=== PATIENT | male | born 1930 | race Caucasian/White ===

== ENCOUNTER → 2016-05-02 | Outpatient (CLI) | payer OTHER ==
[~2016-05-02] MED LIST: AMLO-110 PO; CHOL1000 PO; LPR25 PO; OMEP20CA9 PO; SOTA80TA PO; TRAM-10 PO; XRL10 PO
[2016-05-02 12:46] LABS: BASO % 0.2 %; BASO ABS # 0.01 K/uL (0-0.2); COMPLETE YES; EOS % 5.1 %; HEMATOCRIT 41.8 % (42-52); IG% 0.4 %; LYMPH % 27.7 %; LYMPH ABS # 1.47 K/uL (1.2-3.4); MEAN CELL VOLUME 91.1 fL (80-100); MEAN CORPUSCULAR HEMOGLOBIN 32.9 pg (25-34); MEAN CORPUSCULAR HGB CONC 36.1 g/dl (32-36); MEAN PLATELET VOLUME 10.4 fL (7.4-10.4); MONO % 9.8 %; NEUT % 56.8 %; PLATELET COUNT 151 K/uL (130-400); RED BLOOD COUNT 4.59 M/uL (4.7-6.1)
[2016-05-02 13:06] LABS: BLOOD UREA NITROGEN 22 mg/dl (7-18); BUN/CREATININE RATIO 13.1 (10-20); CALCIUM 8.8 mg/dl (8.5-10.1); CARBON DIOXIDE 28 mmol/L (21-32); CHLORIDE 109 mmol/L (98-107); GLUCOSE 82 mg/dl (70-99); MAGNESIUM 2.2 mg/dl (1.8-2.4); PHOSPHORUS 2.4 mg/dl (2.5-4.9); POTASSIUM 3.7 mmol/L (3.5-5.1); SODIUM 147 mmol/L (136-145)
== END | disposition home or self-care (01) ==
LOC: C.LABPVFM 08:10
PROVIDERS: ATTEND Internal Medicine Nephrology
DX: N18.3 Chronic kidney disease, stage 3 (moderate) (principal)

== ENCOUNTER → 2016-05-13 | Outpatient (CLI) | payer OTHER ==
[2016-05-13 17:56] LABS: URINE APPEARANCE CLEAR (CLEAR); URINE BILIRUBIN NEG (NEG); URINE COLOR YELLOW; URINE NITRITE NEG (NEG); URINE SPECIFIC GRAVITY 1.021 (1.000-1.030); UROBILINOGEN NEG (NEG); ZZUR CULT IF INDIC CLEAN CATCH NO
[2016-05-13 18:00] LABS: MANUAL MICROSCOPIC REQUIRED? NO; REVIEW REQ? NO
[2016-05-13 18:10] LABS: URINE PROTIEN/CREAT RATIO 0.4 (0-0.2); URINE TOTAL PROTEIN 63.6 mg/dl (0-11.9)
== END | disposition home or self-care (01) ==
LOC: C.LABPVFM 18:00
PROVIDERS: ATTEND Internal Medicine Nephrology
DX: N18.3 Chronic kidney disease, stage 3 (moderate) (principal)

== ENCOUNTER → 2016-09-07 | Outpatient (CLI) | payer OTHER ==
--- NOTE | 2016-09-07 08:19 | DIAGNOSTIC IMAGING REPORT ---
CHEST 2 VIEWS ROUTINE CLINICAL HISTORY: N18.3 Chronic renal insufficiency, stage III (moderate)R05 Cough COMPARISON STUDY: 04/22/2015 FINDINGS: The bones soft tissues and hemidiaphragms are normal. The cardiomediastinal silhouette is normal. The lungs are clear. The pulmonary vasculature is normal. IMPRESSION: Negative chest. Electronically signed by: Vernon Segura M.D. 09/07/2016 8:18 AM Dictated Date/Time: 09/07/2016 8:18 AM
[2016-09-07 09:38] LABS: CALCIUM 8.6 mg/dl (8.5-10.1)
[2016-09-07 09:43] LABS: BLOOD UREA NITROGEN 22 mg/dl (7-18); BUN/CREATININE RATIO 11.5 (10-20); CARBON DIOXIDE 26 mmol/L (21-32); CHLORIDE 108 mmol/L (98-107); GLUCOSE 94 mg/dl (70-99); MAGNESIUM 2.4 mg/dl (1.8-2.4); POTASSIUM 4.2 mmol/L (3.5-5.1); SODIUM 142 mmol/L (136-145)
[2016-09-07 09:44] LABS: PHOSPHORUS 2.8 mg/dl (2.5-4.9)
== END | disposition home or self-care (01) ==
LOC: C.RAD 07:42
PROVIDERS: ATTEND Family Medicine
DX: N18.3 Chronic kidney disease, stage 3 (moderate) (principal); R05 Cough

== ENCOUNTER 2016-09-30 11:37 | Inpatient (IN) | payer OTHER ==
[2016-09-30] VITALS (22 sets, daily range): BP systolic 129–166; BP diastolic 72–98; PULSE 46–52; TEMP 36.5–37.2; O2SAT 86–99; Ht 165.1 cm; Wt 84.6 kg
[~2016-09-30] VITALS: Ht 165.1 cm; Wt 84.6 kg
[~2016-09-30 11:37] MED LIST changes: -AMLO-110 PO; -CHOL1000 PO; -OMEP20CA9 PO; -SOTA80TA PO
--- NOTE | 2016-09-30 12:14 | EMERGENCY ROOM VISIT NOTE ---
History Report prepared by Jimbo: Tyson Howell Under the Supervision of: Dr. Ham Hebert M.D. First contact with patient: 11:52 Chief Complaint: IRREGULAR HEARTBEAT Stated Complaint: BRADYCARDIA History of Present Illness The patient is an 86 year old male who presents to the Emergency Room via ambulance with complaints of a constant slow heart rate noticed since this morning. The patient states that he was at his doctor's office this morning for a regular check up, and they noticed he had a slow heart rate. The patient states that he had some chest pain this morning, and he is a little short of breath, though he can climb stairs fine. He states that he has felt this way for the past couple of weeks. The patient has a history of A-fib. Source of History: patient Onset: this morning Position: other (global) Quality: other (slow heart rate) Timing: constant Associated Symptoms: + chest pain, + SOB Review of Systems All systems have been listed, reviewed, and are negative other than those previously mentioned. Please see Additional Medical History Sheet. Past Medical & Surgical Medical Problems: (1) A-fib (2) Bradycardia (3) Weakness Family History Patient reports no known family medical history. Social History Alcohol Use: none Marital Status: Occupation Status: retired Current/Historical Medications Scheduled Amlodipine (Norvasc), 5 MG PO DAILY Cholecalciferol (Vitamin D3), 1 TAB PO DAILY Omeprazole (Prilosec), 20 MG PO DAILY Sotalol Hcl (Sotalol Hcl), 0.5 TAB PO BID Allergies Coded Allergies: No Known Allergies (Unverified , NKA, 09/30/16) Physical Exam Vital Signs Date Time Temp Pulse Resp B/P (MAP) Pulse Ox O2 Delivery O2 Flow Rate FiO2 09/30/16 13:13 22 09/30/16 12:49 22 16 150/56 100 Nasal Cannula 4.0 09/30/16 12:16 29 17 134/58 98 Nasal Cannula 4.0 09/30/16 12:02 100 Nasal Cannula 4.0 09/30/16 11:45 26 09/30/16 11:45 36.6 26 16 164/62 100 Nasal Cannula 2.0 09/30/16 11:45 96 Nasal Cannula Physical Exam GENERAL: Patient awake, alert, and appropriate. Appears in no distress. SKIN: No erythema, pallor, cyanosis or rash HEENT: Normal head, pupils equal, reactive to light and accommodation. Ears normal. Oral cavity and posterior pharynx appear normal. Neck: Without adenopathy, no neck vein distention. LUNGS: Clear to auscultation. No wheezes, no rales, no rhonchi. HEART: Severe bradycardia. No murmurs. No gallops. No rubs ABDOMEN: No masses, no rebound, no hepatomegaly or splenomegaly. EXTREMITIES: No signs of trauma. No pedal or pretibial edema. No calf or thigh tenderness. NEUROLOGIC: Cranial nerves II-XII within normal limits. No gross motor sensory function deficits. Medical Decision & Procedures ER Provider Diagnostic Interpretation: X ray results are stated below per my interpretation and the radiologist's interpretation. CHEST ONE VIEW PORTABLE CLINICAL HISTORY: 86 years-old Male presenting with severe bradycardia. TECHNIQUE: Portable upright AP view of the chest was obtained. COMPARISON: 09/07/2016. FINDINGS: Defibrillator leads project over the left hemithorax. Atherosclerosis of the aortic arch. Mildly prominent cardiac silhouette as on prior exam. Minimal linear opacities noted the lung bases bilaterally. No large effusion or pneumothorax. IMPRESSION: 1. Minimal basilar atelectasis. Electronically signed by: Sae Sandoval M.D. 09/30/2016 12:53 PM Dictated Date/Time: 09/30/2016 12:52 PM Laboratory Results 09/30/16 11:50 Red Blood Count 4.66, Mean Corpuscular Volume 94.8, Mean Corpuscular Hemoglobin 32.0, Mean Corpuscular Hemoglobin Concent 33.7, Mean Platelet Volume 11.6, Neutrophils (%) (Auto) 63.0, Lymphocytes (%) (Auto) 21.7, Monocytes (%) (Auto) 11.7, Eosinophils (%) (Auto) 3.2, Basophils (%) (Auto) 0.2, Neutrophils # (Auto ) 4.11, Lymphocytes # (Auto) 1.41, Monocytes # (Auto) 0.76, Eosinophils # (Auto ) 0.21, Basophils # (Auto) 0.01 09/30/16 11:50 Test 09/30/16 11:50 White Blood Count 6.51 K/uL (4.8-10.8) Red Blood Count 4.66 M/uL (4.7-6.1) Hemoglobin 14.9 g/dL (14.0-18.0) Hematocrit 44.2 % (42-52) Mean Corpuscular Volume 94.8 fL (80-100) Mean Corpuscular Hemoglobin 32.0 pg (25-34) Mean Corpuscular Hemoglobin Concent 33.7 g/dl (32-36) Platelet Count 147 K/uL (130-400) Mean Platelet Volume 11.6 fL (7.4-10.4) Neutrophils (%) (Auto) 63.0 % Lymphocytes (%) (Auto) 21.7 % Monocytes (%) (Auto) 11.7 % Eosinophils (%) (Auto) 3.2 % Basophils (%) (Auto) 0.2 % Neutrophils # (Auto) 4.11 K/uL (1.4-6.5) Lymphocytes # (Auto) 1.41 K/uL (1.2-3.4) Monocytes # (Auto) 0.76 K/uL (0.11-0.59) Eosinophils # (Auto) 0.21 K/uL (0-0.5) Basophils # (Auto) 0.01 K/uL (0-0.2) RDW Standard Deviation 46.1 fL (36.4-46.3) RDW Coefficient of Variation 13.5 % (11.5-14.5) Immature Granulocyte % (Auto) 0.2 % Immature Granulocyte # (Auto) 0.01 K/uL (0.00-0.02) Prothrombin Time 11.4 SECONDS (9.0-12.0) Prothromb Time International Ratio 1.1 (0.9-1.1) Activated Partial Thromboplast Time 25.4 SECONDS (21.0-31.0) Partial Thromboplastin Ratio 1.0 Anion Gap 9.0 mmol/L (3-11) Est Creatinine Clear Calc Drug Dose 21.9 ml/min Estimated GFR () 25.8 Estimated GFR (Non- 22.3 BUN/Creatinine Ratio 18.8 (10-20) Calcium Level 9.0 mg/dl (8.5-10.1) Total Bilirubin 0.6 mg/dl (0.2-1) Aspartate Amino Transf (AST/SGOT) 29 U/L (15-37) Alanine Aminotransferase (ALT/SGPT) 47 U/L (12-78) Alkaline Phosphatase 74 U/L (45-117) Total Creatine Kinase 39 U/L (39-308) Creatine Kinase MB 1.5 ng/ml (0.5-3.6) Creatine Kinase MB Ratio 3.8 (0-3.0) Troponin I 0.071 ng/ml (0-0.045) Total Protein 6.7 gm/dl (6.4-8.2) Albumin 3.3 gm/dl (3.4-5.0) Globulin 3.4 gm/dl (2.5-4.0) Albumin/Globulin Ratio 1.0 (0.9-2) Lyme Disease IgG Antibody NEG (NEG) Lyme Disease IgM Antibody NEG (NEG) Laboratory results as stated above per my review. Procedure An external pacemaker was placed on the patient and readied if the patient became symptomatic. ECG Indication: bradycardia Rate (beats per minute): 26 Rhythm: sinus bradycardia Findings: left axis deviation, other (Third degree AV block) ED Course 1152: Past medical records reviewed. The patient was evaluated in room B1. A complete history and physical examination was performed. 1218: I reevaluated the patient, and he resting. 1221: I discussed the patient's case with Dr. Encinas, Cardiology, and he recommends a temporary pacer. 1240: I reassessed the patient, and he is doing fine 1249: I reevaluated the patient, and his troponin was elevated. 1307: I reassessed the patient, and Dr. Zelaya, Cardiology was evaluating the patient for a temporary pace maker. Medical Decision Nurses notes reviewed. Medical history sheet reviewed. Differential diagnosis includes but is not limited to: third degree av block, acute myocardial infarction, bradycardia secondary to medications, electrolyte abnormality, and lyme's disease. Medication Reconciliation: I attest that I have personally reviewed the patient' s current medication list. Blood Pressure Screening: Patient was found to have an elevated blood pressure and was referred to their primary doctor for recheck and further treatment. The patient has been feeling weak for the past 2-3 weeks. He went to a routine doctor's visit today and was found to be in third-degree block. I discussed care with the paramedics prior to his arrival. We did not initiate any intervention because the patient was stable. I examined the patient immediately on arrival. The patient remains in very slow rhythm. Multiple labs , EKG and imaging were obtained. The patient's troponin was mildly elevated. I discussed care with 2 cardiologists. The patient will require at least a temporary pacemaker. The patient was taken to the cardiopulmonary labor expediter from the ED. Consults Time Called: 1218 Consulting Physician: Dr. Pineda, Cardiology Returned Call: 1221 I discussed the patient's case with Dr. Encinas, Cardiology, and he recommends a temporary pacer. Impression Primary Impression: Complete heart block Additional Impression: Elevated troponin Critical Care I have personally spent greater than 35 minutes of critical care time in the direct management of this patient. This includes bedside care, interpretation of diagnostic studies, and testing, discussion with consultants, patient, and family members, and other required patient management activities. This 35 minutes is in excess of all separately billable procedures. Scribe Attestation The scribe's documentation has been prepared under my direction and personally reviewed by me in its entirety. I confirm that the note above accurately reflects all work, treatment, procedures, and medical decision making performed by me. Departure Information Dispostion Being Evaluated By Hospitalist Referrals Jesus Newton M.D. (PCP) Patient Instructions My [facility] Problem Qualifiers
[2016-09-30 12:18] LABS: BASO % 0.2 %; BASO ABS # 0.01 K/uL (0-0.2); COMPLETE YES; EOS % 3.2 %; HEMATOCRIT 44.2 % (42-52); IG% 0.2 %; LYMPH % 21.7 %; LYMPH ABS # 1.41 K/uL (1.2-3.4); MEAN CELL VOLUME 94.8 fL (80-100); MEAN CORPUSCULAR HGB CONC 33.7 g/dl (32-36); MEAN PLATELET VOLUME 11.6 fL (7.4-10.4); MONO % 11.7 %; PLATELET COUNT 147 K/uL (130-400); RED BLOOD COUNT 4.66 M/uL (4.7-6.1); WHITE BLOOD COUNT 6.51 K/uL (4.8-10.8)
[2016-09-30] MEDS ORDERED: AMLO-110 PO (12:25)
[2016-09-30] MEDS ORDERED: OMEP20CA9 PO (12:25)
[2016-09-30] MEDS ORDERED: CHOL1000 PO (12:25)
[2016-09-30] MEDS ORDERED: SOTA80TA PO (12:25)
[2016-09-30 12:33] LABS: INR 1.1 (0.9-1.1); PROTHROMBIN TIME (PATIENT) 11.4 SECONDS (9.0-12.0)
[2016-09-30 12:41] LABS: BUN/CREATININE RATIO 18.8 (10-20); CREATININE 2.5 mg/dl (0.60-1.40); POTASSIUM 4.8 mmol/L (3.5-5.1)
[2016-09-30 12:48] LABS: CKMB/CK RATIO 3.8 (0-3.0)
--- NOTE | 2016-09-30 12:55 | DIAGNOSTIC IMAGING REPORT ---
CHEST ONE VIEW PORTABLE CLINICAL HISTORY: 86 years-old Male presenting with severe bradycardia. TECHNIQUE: Portable upright AP view of the chest was obtained. COMPARISON: 09/07/2016. FINDINGS: Defibrillator leads project over the left hemithorax. Atherosclerosis of the aortic arch. Mildly prominent cardiac silhouette as on prior exam. Minimal linear opacities noted the lung bases bilaterally. No large effusion or pneumothorax. IMPRESSION: 1. Minimal basilar atelectasis. Electronically signed by: Sae Sandoval M.D. 09/30/2016 12:53 PM Dictated Date/Time: 09/30/2016 12:52 PM
[2016-09-30] MEDS ORDERED: ALUMINUM/MAGNESIUM/SIMETH (MAALOX MAX) 30 ML UDC PO PRN (13:30)
[2016-09-30] MEDS ORDERED: MAGNESIUM HYDROXIDE SUSP 30 ML UDC PO PRN (13:30)
[2016-09-30] MEDS ORDERED: NITROGLYCERIN 0.4 MG SL PER TAB CHARGE SL PRN (13:30)
[2016-09-30] MEDS ORDERED: ONDANSETRON INJ 2 MG/ML 2 ML VIAL IV PRN (13:30)
[2016-09-30] MEDS ORDERED: ACETAMINOPHEN 325 MG TAB PO PRN (13:30)
[2016-09-30 13:35] LABS: LYME DISEASE AB IGG NEG (NEG); LYME DISEASE AB IGM NEG (NEG)
[2016-09-30] MEDS ORDERED: MIDAZOLAM HCL 1 MG/ML 2ML VIAL ONE (13:36)
[2016-09-30] MEDS ORDERED: FENTANYL CITRATE INJ 50 MCG/1 ML 2 ML VIAL ONE (13:36)
--- NOTE | 2016-09-30 13:57 | History and Physical ---
History & Physical Date & Time of Service: Sep 30, 2016 at 13:41 Chief Complaint: Bradycardia Primary Care Physician: Jesus Newton M.D. History of Present Illness Source: patient 86 y/o M Hx HTN, CKD 3, mild dementia. Pt states he has felt fatigued for approximately 2 weeks. He denied a fever, CP, SOB, N/V or dysuria. He presented to his primary MDs office for a checkup and it was noted that his HR was in the mid 20s. Needless to say he was referred to the hospital for evaluation. On arrival to the ER an EKG revealed AV dissociation with a ventricular rhythm at 26 BPM. Other than fatigue he continued to have no additional complaints. Initial labs were notable for acute on chronic RF in addition to a troponin above reference range. The pt takes Sotalol daily. Past Medical/Surgical History 1) HTN 2) CKD 3 - baseline creat 1.9 per recent records Family History Patient reports no known family medical history. Does not know cause of parents demise Social History Quit smoking 25 years prior - does not drink - maintains a degree of independence Smoking Status: Former Smoker Marital Status: Occupational Status: retired Immunizations History of Influenza Vaccine: N/A History of Tetanus Vaccine?: Unknown History of Pneumococcal: Unknown History of Hepatitis B Vaccine: Unknown Multi-Drug Resistant Organisms History of MDRO: No Allergies Coded Allergies: No Known Allergies (Unverified , NKA, 09/30/16) Home Medications Scheduled Amlodipine (Norvasc), 5 MG PO DAILY Cholecalciferol (Vitamin D3), 1 TAB PO DAILY Omeprazole (Prilosec), 20 MG PO DAILY Sotalol Hcl (Sotalol Hcl), 0.5 TAB PO BID Review of Systems Constitutional: + weakness, + fatigue, No fever, No chills, No sweats Eyes: No worsening of vision, No eye pain ENT: No hearing loss, No nasal symptoms Respiratory: No cough, No sputum, No wheezing Cardiovascular: No chest pain, No orthopnea, No PND Abdomen: No pain, No nausea, No vomiting Musculoskeletal: No joint pain, No muscle pain Genitourinary - Male: No hematuria, No dysuria, No urinary frequency Neurologic: + weakness, No memory loss, No paralysis Psychiatric: No depression symptoms Endocrine: + fatigue Hematologic / Lymphatic: No abnormal bleeding/bruising Integumentary: No rash Allergic / Immunologic: No environmental allergies Physical Exam Vital Signs Date Time Temp Pulse Resp B/P (MAP) Pulse Ox O2 Delivery O2 Flow Rate FiO2 09/30/16 13:13 22 09/30/16 12:49 22 16 150/56 100 Nasal Cannula 4.0 09/30/16 12:16 29 17 134/58 98 Nasal Cannula 4.0 09/30/16 12:02 100 Nasal Cannula 4.0 09/30/16 11:45 26 09/30/16 11:45 36.6 26 16 164/62 100 Nasal Cannula 2.0 09/30/16 11:45 96 Nasal Cannula General Appearance: WD/WN, no apparent distress, + pertinent finding (Pleasant eldelry male - no distress or discomfort in reclining position) Head: normocephalic Eyes: normal inspection ENT: normal ENT inspection, pharynx normal Neck: supple, no JVD Respiratory/Chest: chest non-tender, lungs clear, normal breath sounds Cardiovascular: + bradycardia, + pertinent finding (Faint heart sounds - may have mild systolic murmur) Abdomen/GI: normal bowel sounds, non tender, soft Back: normal inspection, no CVA tenderness, no muscle spasm, normal range of motion Extremities/Musculoskelatal: normal inspection, no calf tenderness, normal capillary refill, no pedal edema, normal range of motion Neurologic/Psych: facilities management executive II-XII nml as tested, no motor/sensory deficits, alert, + pertinent finding (AAO x 2 ) Skin: normal color, warm/dry, no rash Diagnostics Laboratory Results Results Past 24 Hours Test 09/30/16 11:50 Range/Units White Blood Count 6.51 4.8-10.8 K/uL Red Blood Count 4.66 4.7-6.1 M/uL Hemoglobin 14.9 14.0-18.0 g/dL Hematocrit 44.2 42-52 % Mean Corpuscular Volume 94.8 80-100 fL Mean Corpuscular Hemoglobin 32.0 25-34 pg Mean Corpuscular Hemoglobin Concent 33.7 32-36 g/dl Platelet Count 147 130-400 K/uL Mean Platelet Volume 11.6 7.4-10.4 fL Neutrophils (%) (Auto) 63.0 % Lymphocytes (%) (Auto) 21.7 % Monocytes (%) (Auto) 11.7 % Eosinophils (%) (Auto) 3.2 % Basophils (%) (Auto) 0.2 % Neutrophils # (Auto) 4.11 1.4-6.5 K/uL Lymphocytes # (Auto) 1.41 1.2-3.4 K/uL Monocytes # (Auto) 0.76 0.11-0.59 K/uL Eosinophils # (Auto) 0.21 0-0.5 K/uL Basophils # (Auto) 0.01 0-0.2 K/uL RDW Standard Deviation 46.1 36.4-46.3 fL RDW Coefficient of Variation 13.5 11.5-14.5 % Immature Granulocyte % (Auto) 0.2 % Immature Granulocyte # (Auto) 0.01 0.00-0.02 K/uL Prothrombin Time 11.4 9.0-12.0 SECONDS Prothromb Time International Ratio 1.1 0.9-1.1 Activated Partial Thromboplast Time 25.4 21.0-31.0 SECONDS Partial Thromboplastin Ratio 1.0 Sodium Level 145 136-145 mmol/L Potassium Level 4.8 3.5-5.1 mmol/L Chloride Level 114 98-107 mmol/L Carbon Dioxide Level 22 21-32 mmol/L Anion Gap 9.0 3-11 mmol/L Blood Urea Nitrogen 47 7-18 mg/dl Creatinine 2.50 0.60-1.40 mg/dl Est Creatinine Clear Calc Drug Dose 21.9 ml/min Estimated GFR () 25.8 Estimated GFR (Non- 22.3 BUN/Creatinine Ratio 18.8 10-20 Random Glucose 115 70-99 mg/dl Calcium Level 9.0 8.5-10.1 mg/dl Total Bilirubin 0.6 0.2-1 mg/dl Aspartate Amino Transf (AST/SGOT) 29 15-37 U/L Alanine Aminotransferase (ALT/SGPT) 47 12-78 U/L Alkaline Phosphatase 74 45-117 U/L Total Creatine Kinase 39 39-308 U/L Creatine Kinase MB 1.5 0.5-3.6 ng/ml Creatine Kinase MB Ratio 3.8 0-3.0 Troponin I 0.071 0-0.045 ng/ml Total Protein 6.7 6.4-8.2 gm/dl Albumin 3.3 3.4-5.0 gm/dl Globulin 3.4 2.5-4.0 gm/dl Albumin/Globulin Ratio 1.0 0.9-2 Lyme Disease IgG Antibody NEG NEG Lyme Disease IgM Antibody NEG NEG Diagnostic Radiology CXR: Minimal basilar atelectasis. EKG AV dissociation - ventricular rate of 26 BPM - L axis Impression Assessment and Plan 86 y/o M Hx HTN, CKD 3, PAF, mild dementia. Pt states he has felt fatigued for approximately 2 weeks. He denied a fever, CP, SOB, N/V or dysuria. He presented to his primary MDs office for a checkup and it was noted that his HR was in the mid 20s. Needless to say he was referred to the hospital for evaluation. On arrival to the ER an EKG revealed AV dissociation with a ventricular rhythm at 26 BPM. Other than fatigue he continued to have no additional complaints. Initial labs were notable for acute on chronic RF in addition to a troponin above reference range. The pt takes Sotalol daily for PAF. 1) Bradycardia - heart block - Pt was evaluated by cardiology in the ER. He will receive a temporary pacer and proceed to the ICU. He will be observed over the weekend to determine if this is a Sotalol effect or he needs a permanent pacer. Lyme titers have been sent. He may require a permanent pacer regardless as he would not be able to receive rate control drugs in the event that his AF recurred. 2) HTN - we have held Norvasc presently 3) CKD - creat is above recent baseline likely due to hypoperfusion from bradycardia. Will provide gentle IVF and recheck AM 4) Elevated trop - in presence of elevated creat and bradycardia - unlikely related to CAD - will trend - may receive full-dose anticoagulation with temp pacer regadless, ASA held pending procedure. Full code - Heparin prophylaxis Total time for this admission including review of labs, meds, EKG, imaging - discussion with cardiology, ER attending, Pts primary [employer] Buyer - critical care time - 45 min Level of Care Critical Care Resuscitation Status FULL RESUSCITATION VTE Prophylaxis VTE Risk Assessment Done? Y/N: Yes Risk Level: Moderate Given or contraindicated: Unfractionated heparin SQ
--- NOTE | 2016-09-30 14:32 | [facility] Operative Report ---
Operative Report Operative Date Sep 30, 2016. Pre-Operative Diagnosis symptomatic bradycardia high-degree AV block Post-Operative Diagnosis same Procedure(s) Performed Ultrasound guided Vascular Access Transvenous pacemaker placement Surgeon Garcia Roofing Machine Tender Surgeon(s) Ulises Estimated Blood Loss 2 ml Findings Dilated Right IJ Symptomatic bradycardia Fluids None Specimens None Drains None Anesthesia Local, 1% lidocaine Complication(s) None Disposition Surgical ICU Description of Procedure Right IJ visualized under ultrasound Local anesthesia with 1% lidocaine 6Fr sheath placed to Right IJ Temporary transvenous pacing wire guided to RV under fluoroscopy. Appropriate position confirmed with pacing down to 0.5 mA. Pacing settings at completion of procedure: VVI @ 50 bpm, 10 mA Sheath and wire sutured into place. Summary: Successful temporary transvenous pacemaker placement. I attest to the content of the Intraoperative Record and any orders documented therein. Any exceptions are noted below.
--- NOTE | 2016-09-30 15:52 | Critical Care Consultation ---
Critical Care Consultation Date of Consultation: Sep 30, 2016. Attending Physician: Srinivas Collins M.D. Reason for Consultation: Bradycardia and weakness History of Present Illness He presented to the hospital after discovery of substantial bradycardia. This was thought secondary to medications and conduction disease. A temporary pacer was placed and he was moved to the ICU for monitoring and care. He is in good spirits. No dyspnea. No target pain. Current medications tolerated. We reviewed his medications and history together with his family who are present in the room today. Past Medical/Surgical History HTN Renal Insufficiency--history of nephrectomy 18months ago--for lesion of questionable malignancy--family report negative malignancy at path. Family History Patient reports no known family medical history. Social History Smoking Status: Former Smoker Marital Status: Occupation Status: retired Allergies Coded Allergies: No Known Allergies (Unverified , NKA, 09/30/16) Home Medications Scheduled Amlodipine (Norvasc), 5 MG PO DAILY Cholecalciferol (Vitamin D3), 1 TAB PO DAILY Omeprazole (Prilosec), 20 MG PO DAILY Sotalol Hcl (Sotalol Hcl), 0.5 TAB PO BID Current Inpatient Medications Current Inpatient Medications Medications (Trade) Dose Ordered Sig/Semaj Route Start Time Stop Time Status Last Admin Dose Admin Heparin Sodium (Porcine) (Heparin Sq 5000 Unit/0.5ml) 5,000 unit Q8H SQ 09/30/16 22:00 10/30/16 21:59 Acetaminophen (Tylenol Tab) 650 mg Q4H PRN PO 09/30/16 13:30 10/30/16 13:29 Lorazepam (Ativan Tab) 0.5 mg Q4H PRN PO 09/30/16 13:30 10/30/16 13:29 Nitroglycerin (Nitrostat Tab) 0.4 mg UD PRN SL 09/30/16 13:30 10/30/16 13:29 Al Hydrox/Mg Hydrox/Simethicone (Maalox Max Susp) 15 ml Q4H PRN PO 09/30/16 13:30 10/30/16 13:29 Magnesium Hydroxide (Milk Of Magnesia Susp) 30 ml Q12H PRN PO 09/30/16 13:30 10/30/16 13:29 Ondansetron HCl (Zofran Inj) 4 mg Q6H PRN IV 09/30/16 13:30 10/30/16 13:29 Morphine Sulfate (MoRPHine SULFATE INJ) 2 mg Q2H PRN IV 09/30/16 13:30 10/14/16 13:29 Pantoprazole Sodium (Protonix Tab) 40 mg QAM PO 10/01/16 09:00 10/31/16 08:59 Heparin Sodium (Porcine) (Heparin Sq 5000 Unit/0.5ml) 5,000 unit NOW ONCE SQ 09/30/16 16:00 09/30/16 16:01 Review of Systems No chest pain. No dyspnea. No new neuro changes. No GI/ complaints. He is comfortable. Remaining review is negative. Physical Exam Date Time Temp Pulse Resp B/P (MAP) Pulse Ox O2 Delivery O2 Flow Rate FiO2 09/30/16 15:00 37.2 52 20 132/75 97 Room Air 09/30/16 14:18 50 16 125/80 (95) 95 Room Air 09/30/16 13:49 23 16 146/58 100 09/30/16 13:39 22 16 152/58 100 Nasal Cannula 4.0 09/30/16 13:13 22 09/30/16 12:49 22 16 150/56 100 Nasal Cannula 4.0 09/30/16 12:16 29 17 134/58 98 Nasal Cannula 4.0 09/30/16 12:02 100 Nasal Cannula 4.0 09/30/16 11:45 26 09/30/16 11:45 36.6 26 16 164/62 100 Nasal Cannula 2.0 09/30/16 11:45 96 Nasal Cannula Gen--no distress HEENT--no focal changes Pulmonary--exchange is fine Cardio--rate is 50 and paced. No JVD. Perfusion is acceptable GI--functional --negative Neuro--no new focal changes. Musculo--OA changes Derm--neg Psych--calm and appropriate with me today. Laboratory Results Last 24 Hours Test 09/30/16 11:50 White Blood Count 6.51 K/uL Red Blood Count 4.66 M/uL Hemoglobin 14.9 g/dL Hematocrit 44.2 % Mean Corpuscular Volume 94.8 fL Mean Corpuscular Hemoglobin 32.0 pg Mean Corpuscular Hemoglobin Concent 33.7 g/dl Platelet Count 147 K/uL Mean Platelet Volume 11.6 fL Neutrophils (%) (Auto) 63.0 % Lymphocytes (%) (Auto) 21.7 % Monocytes (%) (Auto) 11.7 % Eosinophils (%) (Auto) 3.2 % Basophils (%) (Auto) 0.2 % Neutrophils # (Auto) 4.11 K/uL Lymphocytes # (Auto) 1.41 K/uL Monocytes # (Auto) 0.76 K/uL Eosinophils # (Auto) 0.21 K/uL Basophils # (Auto) 0.01 K/uL RDW Standard Deviation 46.1 fL RDW Coefficient of Variation 13.5 % Immature Granulocyte % (Auto) 0.2 % Immature Granulocyte # (Auto) 0.01 K/uL Prothrombin Time 11.4 SECONDS Prothromb Time International Ratio 1.1 Activated Partial Thromboplast Time 25.4 SECONDS Partial Thromboplastin Ratio 1.0 Sodium Level 145 mmol/L Potassium Level 4.8 mmol/L Chloride Level 114 mmol/L Carbon Dioxide Level 22 mmol/L Anion Gap 9.0 mmol/L Blood Urea Nitrogen 47 mg/dl Creatinine 2.50 mg/dl Est Creatinine Clear Calc Drug Dose 21.9 ml/min Estimated GFR () 25.8 Estimated GFR (Non- 22.3 BUN/Creatinine Ratio 18.8 Random Glucose 115 mg/dl Calcium Level 9.0 mg/dl Total Bilirubin 0.6 mg/dl Aspartate Amino Transf (AST/SGOT) 29 U/L Alanine Aminotransferase (ALT/SGPT) 47 U/L Alkaline Phosphatase 74 U/L Total Creatine Kinase 39 U/L Creatine Kinase MB 1.5 ng/ml Creatine Kinase MB Ratio 3.8 Troponin I 0.071 ng/ml Total Protein 6.7 gm/dl Albumin 3.3 gm/dl Globulin 3.4 gm/dl Albumin/Globulin Ratio 1.0 Lyme Disease IgG Antibody NEG Lyme Disease IgM Antibody NEG Assessment & Plan Bradycardia possible secondary to Sotalol combined with progressive reduction in GFR. 1. Cardio--pacer and monitor--may require permanent--should shack out soon 2. Pulmonary--toilette and track 3.GI--functional -- OBR as required. 4. Neuro--reported mild dementia--will track for behaviors
[2016-09-30] MEDS ORDERED: HEPARIN SOD 5000 UNIT/0.5 ML CARP SQ ONE (16:00)
--- NOTE | 2016-09-30 17:05 | Cardiology Consultation ---
Cardiology Consultation Date of Consultation: Sep 30, 2016. Requesting Physician: Dr. Hebert Reason for Consultation: Advanced heart block, bradycardia Pt evaluation today including: conversation w/ patient, conversation w/ family , physical exam, chart review, lab review, review of studies, conversation w/ senior staff consultant, review of inpatient medication list, conversation w/ attending History of Present Illness Mr. Flores is a very pleasant 86-year-old man with a history of paroxysmal atrial fibrillation on sotalol, hypertension, chronic kidney disease status post right nephrectomy in the setting of right renal mass (oncocytoma), osteoarthritis who was admitted with fatigue, dizziness and bradycardia. Patient has been followed by Dr. Pruitt for his cardiovascular care. Has been maintained on sotalol for years. Previously was on anticoagulation with Coumadin which was discontinued in the setting of repeated falls. More recently patient states he has been in his usual state of health up until approximately the last several days. Over that time he has noticed increased generalized fatigue, as well as dyspnea on exertion and dizziness with going from sitting to standing. Denies any associated chest pain. Denies any palpitations. Denies any lower extremity swelling, orthopnea or PND. Has not had similar symptoms in the past. No change to his recent medications. 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 In the ED patient was hemodynamically stable and largely asymptomatic while lying flat with again heart rates noted down into the 20s. Telemetry, EKGs showed high- degree AV block, primarily 2:1 AVB with some periods of AV dissociation. Initial troponin positive at 0.07. Past Medical/Surgical History Paroxysmal atrial fibrillation, hypertension, chronic kidney disease, prior right renal mass status post nephrectomy, osteoarthritis Family History Patient reports no known family medical history. Denies family history of premature coronary artery disease or sudden cardiac Social History Smoking Status: Former Smoker History of Alcohol Use: No Lives by himself. Retired Review of Systems 10 point review of systems was completed and was otherwise negative unless stated in HPI Allergies Coded Allergies: No Known Allergies (Unverified , NKA, 09/30/16) Medications Current Inpatient Medications Medications (Trade) Dose Ordered Sig/Semaj Route Start Time Stop Time Status Last Admin Dose Admin Heparin Sodium (Porcine) (Heparin Sq 5000 Unit/0.5ml) 5,000 unit Q8H SQ 09/30/16 13:30 10/30/16 13:29 UNV Acetaminophen (Tylenol Tab) 650 mg Q4H PRN PO 09/30/16 13:30 10/30/16 13:29 UNV Lorazepam (Ativan Tab) 0.5 mg Q4H PRN PO 09/30/16 13:30 10/30/16 13:29 UNV Nitroglycerin (Nitrostat Tab) 0.4 mg UD PRN SL 09/30/16 13:30 10/30/16 13:29 UNV Al Hydrox/Mg Hydrox/Simethicone (Maalox Max Susp) 15 ml Q4H PRN PO 09/30/16 13:30 10/30/16 13:29 UNV Magnesium Hydroxide (Milk Of Magnesia Susp) 30 ml Q12H PRN PO 09/30/16 13:30 10/30/16 13:29 UNV Ondansetron HCl (Zofran Inj) 4 mg Q6H PRN IV 09/30/16 13:30 10/30/16 13:29 UNV Morphine Sulfate (MoRPHine SULFATE INJ) 2 mg Q2H PRN IV 09/30/16 13:30 10/14/16 13:29 UNV Non-Formulary Medication (Omeprazole (Prilosec)) 20 mg DAILY PO 10/01/16 09:00 10/31/16 08:59 UNV Physical Exam Vital Signs Past 12 Hours Date Time Temp Pulse Resp B/P (MAP) Pulse Ox O2 Delivery O2 Flow Rate FiO2 09/30/16 13:39 22 16 152/58 100 Nasal Cannula 4.0 09/30/16 13:13 22 09/30/16 12:49 22 16 150/56 100 Nasal Cannula 4.0 09/30/16 12:16 29 17 134/58 98 Nasal Cannula 4.0 09/30/16 12:02 100 Nasal Cannula 4.0 09/30/16 11:45 26 09/30/16 11:45 36.6 26 16 164/62 100 Nasal Cannula 2.0 09/30/16 11:45 96 Nasal Cannula Head: normocephalic ENMT: normal ENT inspection Neck: supple Lungs: Auscultation: breath sounds normal, no wheezing, no rales/crackles Cardiovascular: Heart Auscultation: bradycardia (Heart rate 20s), II/ WSM (At left lower base) Peripheral Pulses: Carotid Pulse: normal on the left, normal on the right Radial Pulse: normal on the left, normal on the right Femoral Pulse: normal on the left, normal on the right Dorsalis Pedis Pulse: normal on the left, normal on the right Abdomen: Inspection & Palpation: soft, non-distended Extremities: no cyanosis, no edema Neurologic: Cranial Nerves: grossly intact Sensation: grossly intact Data Laboratory Results: Last 24 Hours Test 09/30/16 11:50 White Blood Count 6.51 K/uL Red Blood Count 4.66 M/uL Hemoglobin 14.9 g/dL Hematocrit 44.2 % Mean Corpuscular Volume 94.8 fL Mean Corpuscular Hemoglobin 32.0 pg Mean Corpuscular Hemoglobin Concent 33.7 g/dl Platelet Count 147 K/uL Mean Platelet Volume 11.6 fL Neutrophils (%) (Auto) 63.0 % Lymphocytes (%) (Auto) 21.7 % Monocytes (%) (Auto) 11.7 % Eosinophils (%) (Auto) 3.2 % Basophils (%) (Auto) 0.2 % Neutrophils # (Auto) 4.11 K/uL Lymphocytes # (Auto) 1.41 K/uL Monocytes # (Auto) 0.76 K/uL Eosinophils # (Auto) 0.21 K/uL Basophils # (Auto) 0.01 K/uL RDW Standard Deviation 46.1 fL RDW Coefficient of Variation 13.5 % Immature Granulocyte % (Auto) 0.2 % Immature Granulocyte # (Auto) 0.01 K/uL Prothrombin Time 11.4 SECONDS Prothromb Time International Ratio 1.1 Activated Partial Thromboplast Time 25.4 SECONDS Partial Thromboplastin Ratio 1.0 Sodium Level 145 mmol/L Potassium Level 4.8 mmol/L Chloride Level 114 mmol/L Carbon Dioxide Level 22 mmol/L Anion Gap 9.0 mmol/L Blood Urea Nitrogen 47 mg/dl Creatinine 2.50 mg/dl Est Creatinine Clear Calc Drug Dose 21.9 ml/min Estimated GFR () 25.8 Estimated GFR (Non- 22.3 BUN/Creatinine Ratio 18.8 Random Glucose 115 mg/dl Calcium Level 9.0 mg/dl Total Bilirubin 0.6 mg/dl Aspartate Amino Transf (AST/SGOT) 29 U/L Alanine Aminotransferase (ALT/SGPT) 47 U/L Alkaline Phosphatase 74 U/L Total Creatine Kinase 39 U/L Creatine Kinase MB 1.5 ng/ml Creatine Kinase MB Ratio 3.8 Troponin I 0.071 ng/ml Total Protein 6.7 gm/dl Albumin 3.3 gm/dl Globulin 3.4 gm/dl Albumin/Globulin Ratio 1.0 Lyme Disease IgG Antibody NEG Lyme Disease IgM Antibody NEG Chest x-ray minimal basilar atelectasis Assessment & Plan 1. Symptomatic bradycardia, high-degree AV block 2. History of paroxysmal atrial fibrillation on sotalol 3. Mildly elevated troponin 4. Acute on chronic renal insufficiency 5. Hypertension Patient seen and evaluated in the emergency department. He denied symptoms while lying flat but was symptomatic with minimal exertion. Although hemodynamically stable, in the setting profound bradycardia decision was made to proceed with transvenous temporary pacemaker placement. Patient endorsed symptomatic improvement post appropriate pacing. Current bradycardia potentially related to his longstanding sotalol and will plan to hold over med over the weekend to see if he has any recovery in conduction system. No other clear acute causes of conduction system disease, Lyme serology is negative and low suspicion bradycardia related to ACS. Recommendations-- --admit to ICU --hold home sotalol --check echocardiogram --trend troponins until peaks -- have discussed patient with EP and if significant bradycardia persists over weekend tentatively plan for permanent device placement on Monday --will continue to follow. Please contact with any questions.
[2016-09-30] MEDS ORDERED: PNEUMOCOCCAL POLYSACCHARIDES 25 MCG/0.5 ML VIAL/SYR IM. ONE (19:00)
[2016-09-30] MEDS ORDERED: PNEUMOCOCCAL ADMINISTRATION CHARGE ONE (19:00)
[2016-09-30] MEDS: HEPARIN SOD 5000 UNIT/0.5 ML CARP SQ SCH (21:20)
[2016-09-30 23:28] LABS: URINE APPEARANCE CLEAR (CLEAR); URINE BILIRUBIN NEG (NEG); URINE COLOR YELLOW; URINE NITRITE NEG (NEG); URINE SPECIFIC GRAVITY 1.012 (1.000-1.030); UROBILINOGEN NEG (NEG); ZZUR CULT IF INDIC CLEAN CATCH NO
[2016-09-30 23:29] LABS: MANUAL MICROSCOPIC REQUIRED? NO; REVIEW REQ? NO
[2016-10-01] VITALS (36 sets, daily range): BP systolic 119–194; BP diastolic 68–91; PULSE 50–53; TEMP 36.5–36.7; O2SAT 93–97
[2016-10-01 05:35] LABS: BASO % 0.3 %; BASO ABS # 0.02 K/uL (0-0.2); COMPLETE YES; EOS % 3.4 %; HEMATOCRIT 42.7 % (42-52); IG% 0.1 %; LYMPH % 17.3 %; LYMPH ABS # 1.17 K/uL (1.2-3.4); MEAN CORPUSCULAR HEMOGLOBIN 32.9 pg (25-34); MEAN CORPUSCULAR HGB CONC 35.4 g/dl (32-36); MONO % 9.5 %; NEUT % 69.4 %; PLATELET COUNT 138 K/uL (130-400); RED BLOOD COUNT 4.59 M/uL (4.7-6.1); WHITE BLOOD COUNT 6.75 K/uL (4.8-10.8)
[2016-10-01] MEDS: HEPARIN SOD 5000 UNIT/0.5 ML CARP SQ SCH ×3 (05:41→22:41)
[2016-10-01 05:44] LABS: INR 1.1 (0.9-1.1)
[2016-10-01 05:55] LABS: BUN/CREATININE RATIO 18.9 (10-20); CALCIUM 8.6 mg/dl (8.5-10.1); CREATININE 2.1 mg/dl (0.60-1.40); MAGNESIUM 2.2 mg/dl (1.8-2.4); POTASSIUM 4.2 mmol/L (3.5-5.1)
[2016-10-01 05:59] LABS: PHOSPHORUS 2.3 mg/dl (2.5-4.9)
[2016-10-01] MEDS: PANTOprazole SOD 40 MG TAB PO SCH (08:01)
--- NOTE | 2016-10-01 09:21 | Critical Care Progress Note ---
Critical Care Progress Note Date of Service Oct 01, 2016. ICU Day ICU Day Number: [address] Dunaway Subjective He is comfortable. Pacer function is adequate. No cardiac distress. No new neuro changes. No respiratory issues. Cardiology plans pending Current SOFA Score SOFA Score Response (Comments) Value PaO2/FiO2 (mmHg) < 400 1 SaO2 / FIO2 221 - 301 1 Platelets (x10) > 150 0 Bilirubin (mg/dL) < 1.2 0 Cassandra Coma Score 15 0 Level of Hypotension No Hypotension 0 Creatinine (mg/dL) 2.0 - 3.4 2 Total 4 Assessment & Plan Chronic renal insufficiency secondary to nephrectomy--bradycardia--PACER Cardio--stable--question if will require pacer senior care pulmonary--toilette GI--OBR Neuro--baseline Renal--baseline Consults & Procedures Consultants: Cardio Procedures: none in ICU Data Medications: Current Inpatient Medications Medications (Trade) Dose Ordered Sig/Semaj Route Start Time Stop Time Status Last Admin Dose Admin Heparin Sodium (Porcine) (Heparin Sq 5000 Unit/0.5ml) 5,000 unit Q8H SQ 09/30/16 22:00 10/30/16 21:59 10/01/16 05:41 5,000 UNIT Acetaminophen (Tylenol Tab) 650 mg Q4H PRN PO 09/30/16 13:30 10/30/16 13:29 Lorazepam (Ativan Tab) 0.5 mg Q4H PRN PO 09/30/16 13:30 10/30/16 13:29 Nitroglycerin (Nitrostat Tab) 0.4 mg UD PRN SL 09/30/16 13:30 10/30/16 13:29 Al Hydrox/Mg Hydrox/Simethicone (Maalox Max Susp) 15 ml Q4H PRN PO 09/30/16 13:30 10/30/16 13:29 Magnesium Hydroxide (Milk Of Magnesia Susp) 30 ml Q12H PRN PO 09/30/16 13:30 10/30/16 13:29 Ondansetron HCl (Zofran Inj) 4 mg Q6H PRN IV 09/30/16 13:30 10/30/16 13:29 Morphine Sulfate (MoRPHine SULFATE INJ) 2 mg Q2H PRN IV 09/30/16 13:30 10/14/16 13:29 Pantoprazole Sodium (Protonix Tab) 40 mg QAM PO 10/01/16 09:00 10/31/16 08:59 10/01/16 08:01 40 MG Vital Signs: Date Time Temp Pulse Resp B/P (MAP) Pulse Ox O2 Delivery O2 Flow Rate FiO2 10/01/16 08:00 36.5 50 20 124/70 (88) 94 10/01/16 08:00 94 Room Air 10/01/16 06:01 50 15 148/83 (104) 96 10/01/16 06:00 50 23 94 10/01/16 05:01 51 17 128/68 (88) 93 10/01/16 05:00 51 21 128/68 (88) 93 10/01/16 04:51 36.7 10/01/16 04:04 93 Room Air 10/01/16 04:01 51 21 158/83 (108) 95 10/01/16 04:00 50 17 95 10/01/16 03:01 51 17 147/82 (103) 94 10/01/16 03:00 50 13 95 10/01/16 02:02 50 25 153/87 (109) 94 10/01/16 02:00 50 27 96 10/01/16 01:02 50 14 124/83 (97) 94 10/01/16 01:00 53 14 94 10/01/16 00:11 93 Room Air 10/01/16 00:01 36.5 50 15 133/75 (94) 93 10/01/16 00:00 50 13 93 09/30/16 23:01 50 15 137/79 (98) 92 09/30/16 23:00 50 15 92 09/30/16 22:01 48 18 135/98 (110) 94 09/30/16 22:00 52 15 94 09/30/16 21:01 51 14 145/83 (103) 95 09/30/16 21:00 50 14 95 09/30/16 20:08 52 19 153/72 (99) 94 09/30/16 20:00 93 Room Air 09/30/16 20:00 36.5 49 15 94 09/30/16 19:01 46 15 139/86 (103) 91 09/30/16 19:00 50 15 96 09/30/16 18:02 51 8 (128) 93 166/93 09/30/16 18:00 50 15 95 09/30/16 17:01 50 8 (108) 94 162/85 09/30/16 17:00 49 15 96 09/30/16 16:31 50 19 (104) 94 152/86 09/30/16 16:30 50 18 99 09/30/16 16:02 47 16 (105) 90 165/85 09/30/16 16:00 50 20 95 09/30/16 15:31 50 41 (91) 86 129/72 09/30/16 15:30 50 21 92 09/30/16 15:02 52 56 (113) 95 148/86 09/30/16 15:00 51 19 95 09/30/16 15:00 37.2 52 20 132/75 97 Room Air 09/30/16 14:18 50 16 125/80 (95) 95 Room Air 09/30/16 13:49 23 16 146/58 100 09/30/16 13:39 22 16 152/58 100 Nasal Cannula 4.0 09/30/16 13:13 22 09/30/16 12:49 22 16 150/56 100 Nasal Cannula 4.0 09/30/16 12:16 29 17 134/58 98 Nasal Cannula 4.0 09/30/16 12:02 100 Nasal Cannula 4.0 09/30/16 11:45 26 09/30/16 11:45 36.6 26 16 164/62 100 Nasal Cannula 2.0 09/30/16 11:45 96 Nasal Cannula Laboratory Results: Last 24 Hours Test 09/30/16 11:50 09/30/16 16:06 09/30/16 23:00 10/01/16 05:14 White Blood Count 6.51 K/uL 6.75 K/uL Red Blood Count 4.66 M/uL 4.59 M/uL Hemoglobin 14.9 g/dL 15.1 g/dL Hematocrit 44.2 % 42.7 % Mean Corpuscular Volume 94.8 fL 93.0 fL Mean Corpuscular Hemoglobin 32.0 pg 32.9 pg Mean Corpuscular Hemoglobin Concent 33.7 g/dl 35.4 g/dl Platelet Count 147 K/uL 138 K/uL Mean Platelet Volume 11.6 fL 11.0 fL Neutrophils (%) (Auto) 63.0 % 69.4 % Lymphocytes (%) (Auto) 21.7 % 17.3 % Monocytes (%) (Auto) 11.7 % 9.5 % Eosinophils (%) (Auto) 3.2 % 3.4 % Basophils (%) (Auto) 0.2 % 0.3 % Neutrophils # (Auto) 4.11 K/uL 4.68 K/uL Lymphocytes # (Auto) 1.41 K/uL 1.17 K/uL Monocytes # (Auto) 0.76 K/uL 0.64 K/uL Eosinophils # (Auto) 0.21 K/uL 0.23 K/uL Basophils # (Auto) 0.01 K/uL 0.02 K/uL RDW Standard Deviation 46.1 fL 44.6 fL RDW Coefficient of Variation 13.5 % 13.1 % Immature Granulocyte % (Auto) 0.2 % 0.1 % Immature Granulocyte # (Auto) 0.01 K/uL 0.01 K/uL Prothrombin Time 11.4 SECONDS 12.0 SECONDS Prothromb Time International Ratio 1.1 1.1 Activated Partial Thromboplast Time 25.4 SECONDS Partial Thromboplastin Ratio 1.0 Sodium Level 145 mmol/L 145 mmol/L Potassium Level 4.8 mmol/L 4.2 mmol/L Chloride Level 114 mmol/L 113 mmol/L Carbon Dioxide Level 22 mmol/L 23 mmol/L Anion Gap 9.0 mmol/L 9.0 mmol/L Blood Urea Nitrogen 47 mg/dl 40 mg/dl Creatinine 2.50 mg/dl 2.10 mg/dl Est Creatinine Clear Calc Drug Dose 21.9 ml/min 26.1 ml/min Estimated GFR () 25.8 31.8 Estimated GFR (Non- 22.3 27.5 BUN/Creatinine Ratio 18.8 18.9 Random Glucose 115 mg/dl 84 mg/dl Calcium Level 9.0 mg/dl 8.6 mg/dl Total Bilirubin 0.6 mg/dl 1.0 mg/dl Aspartate Amino Transf (AST/SGOT) 29 U/L 20 U/L Alanine Aminotransferase (ALT/SGPT) 47 U/L 45 U/L Alkaline Phosphatase 74 U/L 75 U/L Total Creatine Kinase 39 U/L Creatine Kinase MB 1.5 ng/ml Creatine Kinase MB Ratio 3.8 Troponin I 0.071 ng/ml Total Protein 6.7 gm/dl 6.5 gm/dl Albumin 3.3 gm/dl 3.3 gm/dl Globulin 3.4 gm/dl Albumin/Globulin Ratio 1.0 Lyme Disease IgG Antibody NEG Lyme Disease IgM Antibody NEG Bedside Glucose 95 mg/dl Urine Color YELLOW Urine Appearance CLEAR Urine pH 7.0 Urine Specific [place] 1.012 Urine Protein NEG Urine Glucose (UA) NEG Urine Ketones NEG Urine Occult Blood TRACE Urine Nitrite NEG Urine Bilirubin NEG Urine Urobilinogen NEG Urine Leukocyte Esterase NEG Urine WBC (Auto) 0 /hpf Urine RBC (Auto) 0-4 /hpf Urine Hyaline Casts (Auto) 1-5 /lpf Urine Epithelial Cells (Auto) 5-10 /lpf Urine Bacteria (Auto) NEG Phosphorus Level 2.3 mg/dl Magnesium Level 2.2 mg/dl Direct Bilirubin 0.2 mg/dl
--- NOTE | 2016-10-01 10:26 | Cardiology Follow-Up ---
Subjective Subjective Date of Service: Oct 01, 2016. Pt evaluation today including: conversation w/ patient, conversation w/ family , physical exam, chart review, lab review, review of studies, review of inpatient medication list Additional Details: Feeling fine. No new complaints. No chest pain, shortness of breath. No pain around catheter site. Tele reviewed -- paced at 50bpm. Pacing held--> underlying rhythm 2:1 AVB with HRs in 20s. Problem List Medical Problems: (1) Complete heart block Status: Acute (2) Elevated troponin Status: Acute Review of Systems Constitutional: No fever, No chills Respiratory: No cough Cardiac: No chest pain Abdomen: No pain, No nausea Heme: No abnormal bleeding/bruising Skin: No rash Objective Vital Signs Last Vital Signs Documentation Date Time Temp Pulse Resp B/P (MAP) Pulse Ox O2 Delivery O2 Flow Rate FiO2 10/01/16 09:00 50 19 142/80 (100) 95 10/01/16 08:00 36.5 10/01/16 08:00 Room Air 09/30/16 13:39 4.0 Physical Exam: General Appearance: no apparent distress Neck: + pertinent finding (device in place in RIJ. No surrouding induration/ ecchtymosis) Respiratory/Chest: chest non-tender, lungs clear Cardiovascular: no murmur, + bradycardia Abdomen: normal bowel sounds, non tender Extremities: normal inspection, no pedal edema Neurologic/Psychiatric: no motor/sensory deficits, normal mood/affect Skin: normal color, warm/dry Assessment and Plan 1. 2:1 AVB/Symptomatic bradycardia 2. History of paroxysmal atrial fibrillation previously on sotalol 3. Mildly elevated troponin 4. Acute on chronic renal insufficiency 5. Hypertension Underlying rhythm remains 2:1 AVB in 20s. Temp pacer working appropriately -- continue to hold sotalol -- check echo -- repeat troponin -- if AV block persists tentatively plan on permanent device on Monday. Medications: Current Inpatient Medications Medications (Trade) Dose Ordered Sig/Semaj Route Start Time Stop Time Status Last Admin Dose Admin Heparin Sodium (Porcine) (Heparin Sq 5000 Unit/0.5ml) 5,000 unit Q8H SQ 09/30/16 22:00 10/30/16 21:59 10/01/16 05:41 5,000 UNIT Acetaminophen (Tylenol Tab) 650 mg Q4H PRN PO 09/30/16 13:30 10/30/16 13:29 Lorazepam (Ativan Tab) 0.5 mg Q4H PRN PO 09/30/16 13:30 10/30/16 13:29 Nitroglycerin (Nitrostat Tab) 0.4 mg UD PRN SL 09/30/16 13:30 10/30/16 13:29 Al Hydrox/Mg Hydrox/Simethicone (Maalox Max Susp) 15 ml Q4H PRN PO 09/30/16 13:30 10/30/16 13:29 Magnesium Hydroxide (Milk Of Magnesia Susp) 30 ml Q12H PRN PO 09/30/16 13:30 10/30/16 13:29 Ondansetron HCl (Zofran Inj) 4 mg Q6H PRN IV 09/30/16 13:30 10/30/16 13:29 Morphine Sulfate (MoRPHine SULFATE INJ) 2 mg Q2H PRN IV 09/30/16 13:30 10/14/16 13:29 Pantoprazole Sodium (Protonix Tab) 40 mg QAM PO 10/01/16 09:00 10/31/16 08:59 10/01/16 08:01 40 MG Lab Results: 10/01/16 05:14 Red Blood Count 4.59, Mean Corpuscular Volume 93.0, Mean Corpuscular Hemoglobin 32.9, Mean Corpuscular Hemoglobin Concent 35.4, Mean Platelet Volume 11.0, Neutrophils (%) (Auto) 69.4, Lymphocytes (%) (Auto) 17.3, Monocytes (%) (Auto) 9.5, Eosinophils (%) (Auto) 3.4, Basophils (%) (Auto) 0.3, Neutrophils # (Auto) 4.68, Lymphocytes # (Auto) 1.17, Monocytes # (Auto) 0.64, Eosinophils # (Auto) 0.23, Basophils # (Auto) 0.02 10/01/16 05:14 Test 09/30/16 11:50 09/30/16 16:06 09/30/16 23:00 10/01/16 05:14 Activated Partial Thromboplast Time 25.4 SECONDS (21.0-31.0) Partial Thromboplastin Ratio 1.0 Total Creatine Kinase 39 U/L (39-308) Creatine Kinase MB 1.5 ng/ml (0.5-3.6) Creatine Kinase MB Ratio 3.8 (0-3.0) Troponin I 0.071 ng/ml (0-0.045) Globulin 3.4 gm/dl (2.5-4.0) Albumin/Globulin Ratio 1.0 (0.9-2) Lyme Disease IgG Antibody NEG (NEG) Lyme Disease IgM Antibody NEG (NEG) Bedside Glucose 95 mg/dl (70-99) Urine Color YELLOW Urine Appearance CLEAR (CLEAR) Urine pH 7.0 (4.5-7.5) Urine Specific [place] 1.012 (1.000-1.030) Urine Protein NEG (NEG) Urine Glucose (UA) NEG (NEG) Urine Ketones NEG (NEG) Urine Occult Blood TRACE (NEG) Urine Nitrite NEG (NEG) Urine Bilirubin NEG (NEG) Urine Urobilinogen NEG (NEG) Urine Leukocyte Esterase NEG (NEG) Urine WBC (Auto) 0 /hpf (0-5) Urine RBC (Auto) 0-4 /hpf (0-4) Urine Hyaline Casts (Auto) 1-5 /lpf (0-5) Urine Epithelial Cells (Auto) 5-10 /lpf (0-5) Urine Bacteria (Auto) NEG (NEG) White Blood Count 6.75 K/uL (4.8-10.8) Red Blood Count 4.59 M/uL (4.7-6.1) Hemoglobin 15.1 g/dL (14.0-18.0) Hematocrit 42.7 % (42-52) Mean Corpuscular Volume 93.0 fL (80-100) Mean Corpuscular Hemoglobin 32.9 pg (25-34) Mean Corpuscular Hemoglobin Concent 35.4 g/dl (32-36) Platelet Count 138 K/uL (130-400) Mean Platelet Volume 11.0 fL (7.4-10.4) Neutrophils (%) (Auto) 69.4 % Lymphocytes (%) (Auto) 17.3 % Monocytes (%) (Auto) 9.5 % Eosinophils (%) (Auto) 3.4 % Basophils (%) (Auto) 0.3 % Neutrophils # (Auto) 4.68 K/uL (1.4-6.5) Lymphocytes # (Auto) 1.17 K/uL (1.2-3.4) Monocytes # (Auto) 0.64 K/uL (0.11-0.59) Eosinophils # (Auto) 0.23 K/uL (0-0.5) Basophils # (Auto) 0.02 K/uL (0-0.2) RDW Standard Deviation 44.6 fL (36.4-46.3) RDW Coefficient of Variation 13.1 % (11.5-14.5) Immature Granulocyte % (Auto) 0.1 % Immature Granulocyte # (Auto) 0.01 K/uL (0.00-0.02) Prothrombin Time 12.0 SECONDS (9.0-12.0) Prothromb Time International Ratio 1.1 (0.9-1.1) Anion Gap 9.0 mmol/L (3-11) Est Creatinine Clear Calc Drug Dose 26.1 ml/min Estimated GFR () 31.8 Estimated GFR (Non- 27.5 BUN/Creatinine Ratio 18.9 (10-20) Calcium Level 8.6 mg/dl (8.5-10.1) Phosphorus Level 2.3 mg/dl (2.5-4.9) Magnesium Level 2.2 mg/dl (1.8-2.4) Total Bilirubin 1.0 mg/dl (0.2-1) Direct Bilirubin 0.2 mg/dl (0-0.2) Aspartate Amino Transf (AST/SGOT) 20 U/L (15-37) Alanine Aminotransferase (ALT/SGPT) 45 U/L (12-78) Alkaline Phosphatase 75 U/L (45-117) Total Protein 6.5 gm/dl (6.4-8.2) Albumin 3.3 gm/dl (3.4-5.0)
--- NOTE | 2016-10-01 13:20 | ECHOCARDIOGRAM REPORT ---
*NOTICE TO RECEIVING [facility] This information is strictly Confidential and protected under [place] law. [place] law prohibits you from making any further disclosure of this information unless further disclosure is expressly permitted by the written consent of the person to whom it pertains or is authorized by law. A general authorization for the release of medical or other information is not sufficient for this purpose. Hospital accepts no responsibility if the information is made available to any other person, INCLUDING THE PATIENT. Interpretation Summary * Name: ANDRÉS PRADO Study Date: 10/01/2016 10:45 AM BP: 142/80 mmHg * Patient Location: .MSICU\S\E110\S\1 HR: 50 * : 1930 (M/d/yyyy) Gender: Male Height: 65 in * Age: 86 yrs Ethnicity: CA Weight: 193 lb * Ordering Physician: Rommel Zelaya * Referring Physician: Jesus Newton * Performed By: Eulalia Vazquez RDCS * * Reason For Study: Dizziness, elevated troponin, asses LV function * BSA: 1.9 m2 * -- Conclusions -- * The left ventricle is normal in size. * Left ventricular systolic function is normal. * Ejection Fraction = 65-70%. * The left ventricular wall motion is normal. * There is severe concentric left ventricular hypertrophy. * Grade I diastolic dysfunction, (abnormal relaxation pattern). * There is mild to moderate mitral regurgitation. * The left atrial size is normal. * There is moderate tricuspid regurgitation. * Right ventricular systolic pressure is normal. Procedure Details * A complete two-dimensional transthoracic echocardiogram was performed (2D, M-mode, Doppler and color flow Doppler). Left Ventricle * The left ventricle is normal in size. * There is severe concentric left ventricular hypertrophy. * Ejection Fraction = 65-70%. * Left ventricular systolic function is normal. * The left ventricular wall motion is normal. Right Ventricle * The right ventricle is normal in size and function. * The right ventricular systolic function is normal. Atria * The left atrial size is normal. * The right atrium is mild to moderately dilated. * The interatrial septum is intact with no evidence for an atrial septal defect. Mitral Valve * The mitral valve is normal in structure and function. * There is mild to moderate mitral regurgitation. Tricuspid Valve * The tricuspid valve is normal in structure and function. * There is moderate tricuspid regurgitation. * Right ventricular systolic pressure is normal. Aortic Valve * The aortic valve is trileaflet. * Aortic valve sclerosis mild, without significant aortic valvular stenosis. * Mild aortic regurgitation. Pulmonic Valve * The pulmonic valve is not well seen, but is grossly normal. * Mild pulmonic valvular regurgitation. Great Vessels * The aortic root is normal size. * No obvious dissection could be visualized. * The pulmonary artery is normal size. * The inferior vena cava is moderately dilated. Left Ventricular Diastolic Function * Grade I diastolic dysfunction, (abnormal relaxation pattern). MMode 2D Measurements and Calculations IVSd 1.1 cm LVIDd 3.7 cm LVIDs 2.3 cm LVPWd 1.1 cm IVS/LVPW 0.98 FS 37.8 % EDV(Teich) 59.7 ml ESV(Teich) 18.6 ml EF(Teich) 68.8 % EDV(cubed) 52.4 ml ESV(cubed) 12.6 ml EF(cubed) 76.0 % LV mass(C)d 125.9 grams LV mass(C)dI 64.6 grams/m\S\2 SV(Teich) 41.1 ml SI(Teich) 21.1 ml/m\S\2 SV(cubed) 39.8 ml SI(cubed) 20.4 ml/m\S\2 Ao root diam 3.0 cm Ao root area 7.1 cm\S\2 ACS 1.7 cm LA dimension 3.4 cm asc Aorta Diam 2.9 cm LA/Ao 1.1 LVOT diam 2.0 cm LVOT area 3.2 cm\S\2 LVAd ap4 18.4 cm\S\2 LVLd ap4 6.0 cm EDV(MOD-sp4) 47.2 ml EDV(sp4-el) 47.5 ml LVAs ap4 9.4 cm\S\2 LVLs ap4 4.8 cm ESV(MOD-sp4) 15.8 ml ESV(sp4-el) 15.7 ml EF(MOD-sp4) 66.5 % EF(sp4-el) 67.0 % LVAd ap2 19.4 cm\S\2 LVLd ap2 6.8 cm EDV(MOD-sp2) 47.6 ml EDV(sp2-el) 46.9 ml LVAs ap2 9.4 cm\S\2 LVLs ap2 5.1 cm ESV(MOD-sp2) 15.1 ml ESV(sp2-el) 14.9 ml EF(MOD-sp2) 68.3 % EF(sp2-el) 68.2 % LVLd %diff 11.8 % EDV(MOD-bp) 50.4 ml LVLs %diff 5.5 % ESV(MOD-bp) 15.9 ml EF(MOD-bp) 68.5 % SV(MOD-sp4) 31.4 ml SI(MOD-sp4) 16.1 ml/m\S\2 SV(MOD-sp2) 32.5 ml SI(MOD-sp2) 16.7 ml/m\S\2 SV(MOD-bp) 34.5 ml SI(MOD-bp) 17.7 ml/m\S\2 SV(sp4-el) 31.8 ml SI(sp4-el) 16.3 ml/m\S\2 SV(sp2-el) 32.0 ml SI(sp2-el) 16.4 ml/m\S\2 Doppler Measurements and Calculations MV E max braulio 92.4 cm/sec MV dec time 0.28 sec Ao V2 max 154.4 cm/sec Ao max PG 9.5 mmHg Ao max PG (full) 6.0 mmHg NORRIS(V,A) 2.0 cm\S\2 NORRIS(V,D) 2.0 cm\S\2 AI max braulio 365.1 cm/sec AI max PG 53.3 mmHg AI dec slope 123.5 cm/sec\S\2 AI P1/2t 865.9 msec LV V1 max PG 3.6 mmHg LV V1 max 94.3 cm/sec PA V2 max 118.1 cm/sec PA max PG 5.6 mmHg PA acc slope 933.6 cm/sec\S\2 PA acc time 0.10 sec PI max braulio 130.3 cm/sec PI max PG 6.8 mmHg PI dec slope 111.6 cm/sec\S\2 PI P1/2t 342.0 msec TR max braulio 210.4 cm/sec PA pr(Accel) 36.2 mmHg
--- NOTE | 2016-10-01 14:35 | Progress Note ---
Subjective Date of Service: Oct 01, 2016. Subjective Pt evaluation today including: conversation w/ patient, physical exam, chart review, lab review, review of studies, review of inpatient medication list Pt resting comfortably in bed Transiently confused at times Problem List Medical Problems: (1) Complete heart block Status: Acute (2) Elevated troponin Status: Acute Review of Systems Constitutional: No fever, No chills, No sweats, No weakness ENT: No hearing loss, No unusual epistaxis, No nasal symptoms, No sore throat Respiratory: No cough, No sputum, No wheezing, No shortness of breath, No dyspnea on exertion Cardiac: No chest pain, No orthopnea, No PND, No edema Abdomen: No pain, No nausea, No vomiting, No diarrhea Musculoskeletal: No joint pain, No muscle pain, No swelling, No calf pain Male : No dysuria, No urinary frequency, No incontinence, No slowing stream Neurologic: No memory loss, No paralysis, No weakness, No numbness/tingling Psychiatric: No depression symptoms, No anhedonism, No anxiety, No insomnia Skin: No rash, No itch Objective Vital Signs Date Time Temp Pulse Resp B/P (MAP) Pulse Ox O2 Delivery O2 Flow Rate FiO2 10/01/16 12:00 36.7 50 12 140/70 (93) 94 Room Air 10/01/16 12:00 94 Room Air 10/01/16 09:00 50 19 142/80 (100) 95 10/01/16 08:00 36.5 50 20 124/70 (88) 94 10/01/16 08:00 94 Room Air 10/01/16 06:01 50 15 148/83 (104) 96 10/01/16 06:00 50 23 94 10/01/16 05:01 51 17 128/68 (88) 93 10/01/16 05:00 51 21 128/68 (88) 93 10/01/16 04:51 36.7 10/01/16 04:04 93 Room Air 10/01/16 04:01 51 21 158/83 (108) 95 10/01/16 04:00 50 17 95 10/01/16 03:01 51 17 147/82 (103) 94 10/01/16 03:00 50 13 95 10/01/16 02:02 50 25 153/87 (109) 94 10/01/16 02:00 50 27 96 10/01/16 01:02 50 14 124/83 (97) 94 10/01/16 01:00 53 14 94 10/01/16 00:11 93 Room Air 10/01/16 00:01 36.5 50 15 133/75 (94) 93 10/01/16 00:00 50 13 93 09/30/16 23:01 50 15 137/79 (98) 92 09/30/16 23:00 50 15 92 09/30/16 22:01 48 18 135/98 (110) 94 09/30/16 22:00 52 15 94 09/30/16 21:01 51 14 145/83 (103) 95 09/30/16 21:00 50 14 95 09/30/16 20:08 52 19 153/72 (99) 94 09/30/16 20:00 93 Room Air 09/30/16 20:00 36.5 49 15 94 09/30/16 19:01 46 15 139/86 (103) 91 09/30/16 19:00 50 15 96 09/30/16 18:02 51 8 (128) 93 166/93 09/30/16 18:00 50 15 95 09/30/16 17:01 50 8 (108) 94 162/85 09/30/16 17:00 49 15 96 09/30/16 16:31 50 19 (104) 94 152/86 09/30/16 16:30 50 18 99 09/30/16 16:02 47 16 (105) 90 165/85 09/30/16 16:00 50 20 95 09/30/16 15:31 50 41 (91) 86 129/72 09/30/16 15:30 50 21 92 09/30/16 15:02 52 56 (113) 95 148/86 09/30/16 15:00 51 19 95 09/30/16 15:00 37.2 52 20 132/75 97 Room Air Physical Exam General Appearance: WD/WN, no apparent distress Eyes: normal inspection, PERRL, EOMI, sclerae normal Neck: supple, no adenopathy, thyroid normal, no JVD Respiratory/Chest: chest non-tender, lungs clear, normal breath sounds, no respiratory distress Cardiovascular: no edema, no gallop, no JVD, + bradycardia Abdomen: normal bowel sounds, non tender, soft, no organomegaly Extremities: normal range of motion, non-tender, normal inspection, no pedal edema Neurologic/Psychiatric: no motor/sensory deficits, alert, normal mood/affect, oriented x 3 Laboratory Results Last 24 Hours Test 09/30/16 16:06 09/30/16 23:00 10/01/16 05:14 10/01/16 10:46 Bedside Glucose 95 mg/dl Urine Color YELLOW Urine Appearance CLEAR Urine pH 7.0 Urine Specific [place] 1.012 Urine Protein NEG Urine Glucose (UA) NEG Urine Ketones NEG Urine Occult Blood TRACE Urine Nitrite NEG Urine Bilirubin NEG Urine Urobilinogen NEG Urine Leukocyte Esterase NEG Urine WBC (Auto) 0 /hpf Urine RBC (Auto) 0-4 /hpf Urine Hyaline Casts (Auto) 1-5 /lpf Urine Epithelial Cells (Auto) 5-10 /lpf Urine Bacteria (Auto) NEG White Blood Count 6.75 K/uL Red Blood Count 4.59 M/uL Hemoglobin 15.1 g/dL Hematocrit 42.7 % Mean Corpuscular Volume 93.0 fL Mean Corpuscular Hemoglobin 32.9 pg Mean Corpuscular Hemoglobin Concent 35.4 g/dl Platelet Count 138 K/uL Mean Platelet Volume 11.0 fL Neutrophils (%) (Auto) 69.4 % Lymphocytes (%) (Auto) 17.3 % Monocytes (%) (Auto) 9.5 % Eosinophils (%) (Auto) 3.4 % Basophils (%) (Auto) 0.3 % Neutrophils # (Auto) 4.68 K/uL Lymphocytes # (Auto) 1.17 K/uL Monocytes # (Auto) 0.64 K/uL Eosinophils # (Auto) 0.23 K/uL Basophils # (Auto) 0.02 K/uL RDW Standard Deviation 44.6 fL RDW Coefficient of Variation 13.1 % Immature Granulocyte % (Auto) 0.1 % Immature Granulocyte # (Auto) 0.01 K/uL Prothrombin Time 12.0 SECONDS Prothromb Time International Ratio 1.1 Sodium Level 145 mmol/L Potassium Level 4.2 mmol/L Chloride Level 113 mmol/L Carbon Dioxide Level 23 mmol/L Anion Gap 9.0 mmol/L Blood Urea Nitrogen 40 mg/dl Creatinine 2.10 mg/dl Est Creatinine Clear Calc Drug Dose 26.1 ml/min Estimated GFR () 31.8 Estimated GFR (Non- 27.5 BUN/Creatinine Ratio 18.9 Random Glucose 84 mg/dl Calcium Level 8.6 mg/dl Phosphorus Level 2.3 mg/dl Magnesium Level 2.2 mg/dl Total Bilirubin 1.0 mg/dl Direct Bilirubin 0.2 mg/dl Aspartate Amino Transf (AST/SGOT) 20 U/L Alanine Aminotransferase (ALT/SGPT) 45 U/L Alkaline Phosphatase 75 U/L Total Protein 6.5 gm/dl Albumin 3.3 gm/dl Troponin I 0.091 ng/ml Test 10/01/16 11:36 Bedside Glucose 98 mg/dl Assessment and Plan 86 y/o M Hx HTN, CKD 3, PAF, mild dementia. Pt states he has felt fatigued for approximately 2 weeks. He denied a fever, CP, SOB, N/V or dysuria. He presented to his primary MDs office for a checkup and it was noted that his HR was in the mid 20s. Needless to say he was referred to the hospital for evaluation. On arrival to the ER an EKG revealed AV dissociation with a ventricular rhythm at 26 BPM. Other than fatigue he continued to have no additional complaints. Initial labs were notable for acute on chronic RF in addition to a troponin above reference range. The pt takes Sotalol daily for PAF. Bradycardia - heart block - now noted to be in 2:1 Pt was evaluated by cardiology in the ER. Temporary venous pacing placed. Cont to hold sotalol. ECHO completed. Severe LVH noted Cont to trend trop, elevated in presence of elevated creat and bradycardia HTN - we have held Norvasc presently, stable at this time CKD 4 - creat is above recent baseline likely due to hypoperfusion from bradycardia. Improving with gentle migration, close to baseline Pt is FULL CODE
[2016-10-01] MEDS ORDERED: NURSING VERBAL MED ORDER ONE ×2 (20:30→22:00)
[2016-10-01] MEDS: HydrALAZINE HCL 20 MG/ML VIAL IV. PRN (20:48)
[2016-10-01] MEDS: LORAZEPAM 0.5 MG TAB PO PRN (21:15)
[2016-10-01] MEDS ORDERED: LORAZEPAM 2 MG/ML 1 ML VIAL ONE (21:33)
[2016-10-01] MEDS ORDERED: LORAZEPAM 2 MG/ML 1 ML VIAL IV PRN ×2 (22:15→23:45)
[2016-10-01] MEDS ORDERED: LORAZEPAM INJ 0.5 MG in SYRINGE 0.75 ML IV PRN (22:15)
[2016-10-01] MEDS ORDERED: HALOPERIDOL LACTATE 5 MG/ML 1 ML VIAL ONE (23:22)
[2016-10-01] MEDS ORDERED: LORAZEPAM INJ 1 MG in SYRINGE 0.75 ML IV PRN (23:30)
[2016-10-01] MEDS: MoRPHine SULFATE 2 MG/ML CARP IV PRN (23:41)
[2016-10-02] VITALS (56 sets, daily range): BP systolic 110–173; BP diastolic 54–109; PULSE 50–77; TEMP 36.4–37.3; O2SAT 92–99
[2016-10-02] MEDS: HydrALAZINE HCL 20 MG/ML VIAL IV. PRN ×4 (02:20→19:31)
[2016-10-02] MEDS ORDERED: CEFAZOLIN SOD 1000MG/55 ML D5W IV SCH (06:00)
[2016-10-02] MEDS ORDERED: CEFAZOLIN SOD 2000 MG in DEXTROSE 5% 50ML IV SCH (06:00)
[2016-10-02 06:01] LABS: BASO % 0.3 %; BASO ABS # 0.02 K/uL (0-0.2); COMPLETE YES; EOS % 2.4 %; HEMATOCRIT 42.8 % (42-52); IG% 0.3 %; LYMPH ABS # 1.05 K/uL (1.2-3.4); MEAN CELL VOLUME 91.8 fL (80-100); MEAN PLATELET VOLUME 10.8 fL (7.4-10.4); MONO % 11.5 %; NEUT % 69.5 %; PLATELET COUNT 135 K/uL (130-400); RED BLOOD COUNT 4.66 M/uL (4.7-6.1); WHITE BLOOD COUNT 6.55 K/uL (4.8-10.8)
[2016-10-02 06:06] LABS: INR 1.1 (0.9-1.1); PROTHROMBIN TIME (PATIENT) 11.6 SECONDS (9.0-12.0)
[2016-10-02 06:45] LABS: BUN/CREATININE RATIO 18.8 (10-20); CALCIUM 8.6 mg/dl (8.5-10.1); MAGNESIUM 2.1 mg/dl (1.8-2.4); PHOSPHORUS 2.2 mg/dl (2.5-4.9); POTASSIUM 4.2 mmol/L (3.5-5.1)
--- NOTE | 2016-10-02 07:59 | Critical Care Progress Note ---
Critical Care Progress Note Date of Service Oct 02, 2016. ICU Day ICU Day Number: [address] Dunaway Subjective Had some confusion and agitation last night. 1X1 in room. Not unexpected given underlying dementia. Hemodynamics stable. On schedule for pacemaker today. Current SOFA Score SOFA Score Response (Comments) Value PaO2/FiO2 (mmHg) < 400 1 SaO2 / FIO2 221 - 301 1 Platelets (x10) > 150 0 Bilirubin (mg/dL) < 1.2 0 Wilson Coma Score 15 0 Level of Hypotension No Hypotension 0 Creatinine (mg/dL) 2.0 - 3.4 2 Total 4 Assessment & Plan Bradycardia/Renal Dysfunction (Nephrectomy)/Dementia 1. Cardio--cardiology plans noted. 2. Pulmonary--toilette 3. Neuro--dementia--Seroquel for agitation suggested. Early mobilization and normalization of environment when able. 4. Renal--will track performance. No recommendations for now. Consults & Procedures Consultants: Cardio Procedures: none in ICU Data Medications: Current Inpatient Medications Medications (Trade) Dose Ordered Sig/Semaj Route Start Time Stop Time Status Last Admin Dose Admin Acetaminophen (Tylenol Tab) 650 mg Q4H PRN PO 09/30/16 13:30 10/30/16 13:29 Lorazepam (Ativan Tab) 0.5 mg Q4H PRN PO 09/30/16 13:30 10/30/16 13:29 10/01/16 21:15 0.5 MG Nitroglycerin (Nitrostat Tab) 0.4 mg UD PRN SL 09/30/16 13:30 10/30/16 13:29 Al Hydrox/Mg Hydrox/Simethicone (Maalox Max Susp) 15 ml Q4H PRN PO 09/30/16 13:30 10/30/16 13:29 Magnesium Hydroxide (Milk Of Magnesia Susp) 30 ml Q12H PRN PO 09/30/16 13:30 10/30/16 13:29 Ondansetron HCl (Zofran Inj) 4 mg Q6H PRN IV 09/30/16 13:30 10/30/16 13:29 Morphine Sulfate (MoRPHine SULFATE INJ) 2 mg Q2H PRN IV 09/30/16 13:30 10/14/16 13:29 10/01/16 23:41 2 MG Pantoprazole Sodium (Protonix Tab) 40 mg QAM PO 10/01/16 09:00 10/31/16 08:59 10/01/16 08:01 40 MG Hydralazine HCl (HydrALAZINE INJ) 10 mg Q4H PRN IV. 10/01/16 20:45 10/31/16 20:44 10/02/16 07:14 10 MG Lactated Ringer's 1,000 ml @ 15 mls/hr Q24H ONCE IV 10/02/16 08:00 10/03/16 07:59 10/02/16 07:14 15 MLS/HR Cefazolin Sodium 2000 mg/Dextrose 60 ml @ 120 mls/hr PREOP IV 10/02/16 06:00 10/02/16 18:00 Lorazepam 1 mg/ Syringe 1.25 ml @ 1 mls/min Q4H PRN IV 10/01/16 23:30 10/31/16 22:14 Lorazepam (Ativan Inj) 1 mg Q4H PRN IV 10/01/16 23:45 10/31/16 23:44 Vital Signs: Date Time Temp Pulse Resp B/P (MAP) Pulse Ox O2 Delivery O2 Flow Rate FiO2 10/02/16 06:01 50 18 132/63 (86) 93 10/02/16 06:00 37.3 50 11 96 10/02/16 05:01 50 18 115/74 (88) 95 10/02/16 05:00 50 18 95 10/02/16 04:08 93 Room Air 10/02/16 04:01 50 20 115/71 (86) 94 10/02/16 04:00 50 13 96 10/02/16 03:02 50 14 154/68 (96) 95 10/02/16 03:00 50 14 94 10/02/16 02:17 50 18 157/54 (88) 96 10/02/16 02:01 37.2 50 20 160/109 (126) 97 10/02/16 02:00 50 10 96 10/02/16 01:02 50 12 138/67 (90) 96 10/02/16 01:00 50 15 95 10/02/16 00:21 93 Room Air 10/02/16 00:01 50 20 134/62 (86) 95 10/02/16 00:00 50 14 95 10/01/16 23:57 50 25 119/69 (86) 96 10/01/16 23:03 50 20 194/80 (118) 97 10/01/16 23:02 50 24 176/ (58) 95 10/01/16 23:00 50 21 97 10/01/16 22:05 50 26 177/74 (108) 95 10/01/16 22:00 52 17 96 10/01/16 21:01 52 20 148/73 (98) 93 10/01/16 21:00 50 24 94 10/01/16 20:02 36.6 52 20 183/70 (107) 93 10/01/16 20:00 93 Room Air 10/01/16 20:00 50 20 95 10/01/16 19:19 50 24 160/86 (110) 95 10/01/16 19:00 50 27 95 10/01/16 18:00 50 20 137/74 (95) 94 Room Air 10/01/16 16:29 50 18 158/83 (108) 95 Room Air 10/01/16 16:00 95 Room Air 10/01/16 16:00 36.7 50 20 154/83 (106) 95 10/01/16 14:00 50 12 140/91 (107) 95 Room Air 10/01/16 12:00 36.7 50 12 140/70 (93) 94 Room Air 10/01/16 12:00 94 Room Air 10/01/16 09:00 50 19 142/80 (100) 95 10/01/16 08:00 36.5 50 20 124/70 (88) 94 10/01/16 08:00 94 Room Air Laboratory Results: Last 24 Hours Test 10/01/16 10:46 10/01/16 11:36 10/01/16 16:08 10/01/16 16:09 Troponin I 0.091 ng/ml Bedside Glucose 98 mg/dl 88 mg/dl 96 mg/dl Test 10/01/16 19:52 10/02/16 00:02 10/02/16 05:39 10/02/16 05:42 Troponin I 0.083 ng/ml Bedside Glucose 111 mg/dl 86 mg/dl White Blood Count 6.55 K/uL Red Blood Count 4.66 M/uL Hemoglobin 15.4 g/dL Hematocrit 42.8 % Mean Corpuscular Volume 91.8 fL Mean Corpuscular Hemoglobin 33.0 pg Mean Corpuscular Hemoglobin Concent 36.0 g/dl Platelet Count 135 K/uL Mean Platelet Volume 10.8 fL Neutrophils (%) (Auto) 69.5 % Lymphocytes (%) (Auto) 16.0 % Monocytes (%) (Auto) 11.5 % Eosinophils (%) (Auto) 2.4 % Basophils (%) (Auto) 0.3 % Neutrophils # (Auto) 4.55 K/uL Lymphocytes # (Auto) 1.05 K/uL Monocytes # (Auto) 0.75 K/uL Eosinophils # (Auto) 0.16 K/uL Basophils # (Auto) 0.02 K/uL RDW Standard Deviation 43.3 fL RDW Coefficient of Variation 13.2 % Immature Granulocyte % (Auto) 0.3 % Immature Granulocyte # (Auto) 0.02 K/uL Prothrombin Time 11.6 SECONDS Prothromb Time International Ratio 1.1 Sodium Level 143 mmol/L Potassium Level 4.2 mmol/L Chloride Level 110 mmol/L Carbon Dioxide Level 26 mmol/L Anion Gap 7.0 mmol/L Blood Urea Nitrogen 38 mg/dl Creatinine 2.00 mg/dl Est Creatinine Clear Calc Drug Dose 26.3 ml/min Estimated GFR () 33.8 Estimated GFR (Non- 29.1 BUN/Creatinine Ratio 18.8 Random Glucose 90 mg/dl Calcium Level 8.6 mg/dl Phosphorus Level 2.2 mg/dl Magnesium Level 2.1 mg/dl Total Bilirubin 1.2 mg/dl Direct Bilirubin 0.3 mg/dl Aspartate Amino Transf (AST/SGOT) 25 U/L Alanine Aminotransferase (ALT/SGPT) 37 U/L Alkaline Phosphatase 79 U/L Total Protein 6.3 gm/dl Albumin 3.2 gm/dl
[2016-10-02] MEDS ORDERED: LACTATED RINGER'S 1000ML 1,000 ML IV ONE (08:00)
--- NOTE | 2016-10-02 09:51 | Cardiology Follow-Up ---
Subjective Date of Service: Oct 02, 2016. Pt evaluation today including: conversation w/ patient, conversation w/ family , physical exam, lab review, review of studies, review of inpatient medication list History of Present Illness This is a very pleasant 86-year-old gentleman with a history of paroxysmal atrial fibrillation for which he was on propafenone. He presented to his pin [facility] machine [facility] and was noted to be bradycardic with high-grade AV block and periods of AV dissociation, heart rate in the 20s. He was admitted on 2016 when this was identified, a temporary pacemaker was placed awaiting drug metabolism. He has remained however in complete heart block. He has no complaints today, no chest discomfort and no shortness of breath. Social History Smoking Status: Former Smoker History of Alcohol Use: No Review of Systems Respiratory: No cough, No sputum, No wheezing, No shortness of breath, No dyspnea on exertion Cardiac: No chest pain, No orthopnea, No PND, No edema 10 point review of systems was completed and was otherwise negative unless stated in HPI Medications No scheduled cardiovascular medications, no propafenone for more than 48 hours Objective Vital Signs Past 12 Hours Date Time Temp Pulse Resp B/P (MAP) Pulse Ox O2 Delivery O2 Flow Rate FiO2 10/02/16 07:48 96 Nasal Cannula 2.0 10/02/16 07:48 36.7 50 17 142/87 (105) 95 Nasal Cannula 2.0 10/02/16 06:01 50 18 132/63 (86) 93 10/02/16 06:00 37.3 50 11 96 10/02/16 05:01 50 18 115/74 (88) 95 10/02/16 05:00 50 18 95 10/02/16 04:08 93 Room Air 10/02/16 04:01 50 20 115/71 (86) 94 10/02/16 04:00 50 13 96 10/02/16 03:02 50 14 154/68 (96) 95 10/02/16 03:00 50 14 94 10/02/16 02:17 50 18 157/54 (88) 96 10/02/16 02:01 37.2 50 20 160/109 (126) 97 10/02/16 02:00 50 10 96 10/02/16 01:48 36.6 50 19 163/76 96 Nasal Cannula 2.0 10/02/16 01:02 50 12 138/67 (90) 96 10/02/16 01:00 50 15 95 10/02/16 00:21 93 Room Air 10/02/16 00:01 50 20 134/62 (86) 95 10/02/16 00:00 50 14 95 10/01/16 23:57 50 25 119/69 (86) 96 10/01/16 23:03 50 20 194/80 (118) 97 10/01/16 23:02 50 24 176/ (58) 95 10/01/16 23:00 50 21 97 10/01/16 22:05 50 26 177/74 (108) 95 10/01/16 22:00 52 17 96 Last Recorded Weight-Kilograms: 86.700 Physical Exam Lungs: Auscultation: breath sounds normal, no wheezing, no rales/crackles Cardiovascular: Heart Auscultation: bradycardia (Heart rate 20s), II/ WSM (At left lower base) Peripheral Pulses: Carotid Pulse: normal on the left, normal on the right Radial Pulse: normal on the left, normal on the right Femoral Pulse: normal on the left, normal on the right Dorsalis Pedis Pulse: normal on the left, normal on the right Extremities: no cyanosis, no edema Data Laboratory Results: Last 24 Hours Test 10/01/16 10:46 10/01/16 11:36 10/01/16 16:08 10/01/16 16:09 Troponin I 0.091 ng/ml Bedside Glucose 98 mg/dl 88 mg/dl 96 mg/dl Test 10/01/16 19:52 10/02/16 00:02 10/02/16 05:39 10/02/16 05:42 Troponin I 0.083 ng/ml Bedside Glucose 111 mg/dl 86 mg/dl White Blood Count 6.55 K/uL Red Blood Count 4.66 M/uL Hemoglobin 15.4 g/dL Hematocrit 42.8 % Mean Corpuscular Volume 91.8 fL Mean Corpuscular Hemoglobin 33.0 pg Mean Corpuscular Hemoglobin Concent 36.0 g/dl Platelet Count 135 K/uL Mean Platelet Volume 10.8 fL Neutrophils (%) (Auto) 69.5 % Lymphocytes (%) (Auto) 16.0 % Monocytes (%) (Auto) 11.5 % Eosinophils (%) (Auto) 2.4 % Basophils (%) (Auto) 0.3 % Neutrophils # (Auto) 4.55 K/uL Lymphocytes # (Auto) 1.05 K/uL Monocytes # (Auto) 0.75 K/uL Eosinophils # (Auto) 0.16 K/uL Basophils # (Auto) 0.02 K/uL RDW Standard Deviation 43.3 fL RDW Coefficient of Variation 13.2 % Immature Granulocyte % (Auto) 0.3 % Immature Granulocyte # (Auto) 0.02 K/uL Prothrombin Time 11.6 SECONDS Prothromb Time International Ratio 1.1 Sodium Level 143 mmol/L Potassium Level 4.2 mmol/L Chloride Level 110 mmol/L Carbon Dioxide Level 26 mmol/L Anion Gap 7.0 mmol/L Blood Urea Nitrogen 38 mg/dl Creatinine 2.00 mg/dl Est Creatinine Clear Calc Drug Dose 26.3 ml/min Estimated GFR () 33.8 Estimated GFR (Non- 29.1 BUN/Creatinine Ratio 18.8 Random Glucose 90 mg/dl Calcium Level 8.6 mg/dl Phosphorus Level 2.2 mg/dl Magnesium Level 2.1 mg/dl Total Bilirubin 1.2 mg/dl Direct Bilirubin 0.3 mg/dl Aspartate Amino Transf (AST/SGOT) 25 U/L Alanine Aminotransferase (ALT/SGPT) 37 U/L Alkaline Phosphatase 79 U/L Total Protein 6.3 gm/dl Albumin 3.2 gm/dl Telemetry reviewed: No evidence of AV conduction, ventricular pacing consistently. I turned the pacemaker down to 30 bpm this morning and he had no evidence of AV conduction. Consistent with complete heart block. Assessment and Plan #1. Complete heart block: No reversible cause has been identified, it does not appear to be drug related. He remains dependent on his temporary pacemaker and should have a permanent pacemaker implanted. I discussed the indications, procedure, risks and alternatives of pacemaker implantation with him and he understands and agrees to proceed. His family arrived during the discussion and a reviewed it with them as well. Consent obtained. We will plan pacemaker implantation today with removal of his temporary pacemaker.
[2016-10-02] MEDS ORDERED: MIDAZOLAM HCL 1 MG/ML 2ML VIAL ONE (10:06)
[2016-10-02] MEDS ORDERED: FENTANYL CITRATE INJ 50 MCG/1 ML 2 ML VIAL ONE (10:06)
[2016-10-02] MEDS ORDERED: ATROPINE SULFATE 0.1 MG/ML 5ML SYR IV PRN (10:15)
[2016-10-02] MEDS ORDERED: FENTANYL CITRATE INJ 50 MCG/1 ML 2 ML VIAL IV PRN (10:15)
[2016-10-02] MEDS ORDERED: ONDANSETRON INJ 2 MG/ML 2 ML VIAL IV PRN (10:15)
[2016-10-02] MEDS ORDERED: LIDOCAINE HCL 1% 20 ML VIAL ONE (10:33)
[2016-10-02] MEDS ORDERED: CONRAY 60% 50 ML VIAL ONE (10:34)
[2016-10-02] MEDS ORDERED: BACITRACIN 50000 UNIT VIAL ONE (10:34)
[2016-10-02] MEDS ORDERED: BACITRACIN OINT 15 GM TUBE ONE (10:34)
[2016-10-02] MEDS ORDERED: LIDOCAINE HCL 2% 2 ML VIAL (20MG/ML) ONE (10:41)
[2016-10-02] MEDS ORDERED: PROPOFOL IV EMULSION 10 MG/ML 20 ML VIAL IV ONE (10:42)
[2016-10-02] MEDS ORDERED: CEFAZOLIN SOD 1 GM VIAL ONE ×2 (11:45→11:52)
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
--- NOTE | 2016-10-02 13:07 | [facility] Operative Report ---
Operative Report Operative Date Oct 02, 2016. Pre-Operative Diagnosis Complete heart block Post-Operative Diagnosis same Procedure(s) Performed 1. Dual-chamber pacemaker implantation 2. Removal of temporary pacemaker from right IJ location Surgeon Dr. De La Rosa Manager Of Exhibitions And Collections Surgeon(s) Ulises Estimated Blood Loss 50 ml Findings Good lead placement, good measurements. Removal of temporary pacemaker without complication. Fluids None Specimens None Drains None Anesthesia Local, 1% lidocaine with sedation via anesthesia department Complication(s) None Disposition Surgical ICU Description of Procedure After obtaining informed consent for the procedure, the patient was brought to the laboratory and prepped and draped in the standard sterile manner. The left prepectoral region was anesthetized with 1% lidocaine local anesthetic and left axillary venipuncture was performed by percutaneous technique and a guidewire placed through the left subclavian vein into the superior vena cava. The area was further infiltrated with 1% lidocaine local anesthetic and a 5 cm incision was made parallel to the left clavicle and 2 cm below it and carried down to the anterior pectoralis fascia. A pacemaker pocket was formed by blunt dissection anterior to the pectoralis fascia and a bacitracin-soaked sponge (50, 000 units in 50 cc normal saline solution) was placed in the pocket. An 8 [place] [employer] lead introducer was placed over the guidewire into the left subclavian vein, the dilator and guidewire were removed and a bipolar active fixation steroid tipped ventricular lead was advanced through the introducer into the superior vena cava. A guidewire was placed through the introducer and the introducer was stripped from the lead and guidewire. Another 8 [place] Med[employer]onic lead introducer was placed over the guidewire into the left subclavian vein, the dilator and guidewire were removed and a bipolar active fixation steroid tipped atrial lead was advanced through the introducer into the superior vena cava. A guidewire was placed back through the introducer and the introducer was stripped from the lead and guidewire. Using a curved stylette the ventricular lead was advanced through the right ventricular outflow tract into the pulmonary artery and then using a straight stylette was positioned in the right ventricular apex. The screw was extended fixing the lead in position. Pacing and sensing thresholds were evaluated in bipolar configuration and are recorded on the implant data sheet. Using a curved stylette the atrial lead was positioned in the region of the atrial appendage and the screw extended fixing the lead in position. Pacing and sensing thresholds were evaluated in bipolar configuration and are recorded on the implant data sheet. Once the leads were in position they were attached to the anterior pectoralis fascia using 2 sutures of 2-0 silk around each lead collar. The bacitracin- soaked sponge was removed from the pocket, hemostasis was obtained, the pacemaker was attached to the leads and placed in the pocket with the leads coiled beneath it. The temporary pacemaker was then removed under fluoroscopic guidance, leaving the right IJ sheath in place. The incision was closed with a running double subcutaneous closure of 3-0 Vicryl absorbable suture, followed by running subcuticular skin closure of 4-0 Vicryl absorbable suture. Bacitracin ointment was placed on the incision and a pressure dressing applied. I attest to the content of the Intraoperative Record and any orders documented therein. Any exceptions are noted below.
[2016-10-02] MEDS ORDERED: ACETAMINOPHEN 325 MG TAB PO PRN (13:15)
[2016-10-02] MEDS ORDERED: KETOROLAC TROMETHAMINE 10 MG TAB PO PRN (13:15)
--- NOTE | 2016-10-02 13:38 | Anesthesiology Progress Note ---
Anesthesia Post Op Note Date & Time Oct 02, 2016 at 13:37 Vital Signs Pain Intensity: 0 Vital Signs Past 12 Hours Date Time Temp Pulse Resp B/P (MAP) Pulse Ox O2 Delivery O2 Flow Rate FiO2 10/02/16 13:20 61 20 155/66 98 Nasal Cannula 2 10/02/16 13:10 62 19 173/91 98 Nasal Cannula 2 10/02/16 13:00 36.5 60 18 161/80 98 Nasal Cannula 2 Manual 10/02/16 11:00 51 14 156/105 (122) 96 Nasal Cannula 2.0 10/02/16 10:00 51 12 167/79 (108) 96 Nasal Cannula 2.0 10/02/16 09:00 50 17 150/70 (96) 97 Nasal Cannula 2.0 10/02/16 07:48 96 Nasal Cannula 2.0 10/02/16 07:48 36.7 50 17 142/87 (105) 95 Nasal Cannula 2.0 10/02/16 06:01 50 18 132/63 (86) 93 10/02/16 06:00 37.3 50 11 96 10/02/16 05:01 50 18 115/74 (88) 95 10/02/16 05:00 50 18 95 10/02/16 04:08 93 Room Air 10/02/16 04:01 50 20 115/71 (86) 94 10/02/16 04:00 50 13 96 10/02/16 03:02 50 14 154/68 (96) 95 10/02/16 03:00 50 14 94 10/02/16 02:17 50 18 157/54 (88) 96 10/02/16 02:01 37.2 50 20 160/109 (126) 97 10/02/16 02:00 50 10 96 10/02/16 01:48 36.6 50 19 163/76 96 Nasal Cannula 2.0 Notes Mental Status: alert / awake / arousable, participated in evaluation Pt Amnestic to Procedure: Yes Nausea / Vomiting: adequately controlled Pain: adequately controlled Airway Patency, RR, SpO2: stable & adequate BP & HR: stable & adequate Hydration State: stable & adequate Anesthetic Complications: no major complications apparent
[2016-10-02] MEDS: PANTOprazole SOD 40 MG TAB PO SCH (14:36)
[2016-10-02] MEDS: LORAZEPAM 0.5 MG TAB PO PRN (19:19)
[2016-10-02] MEDS: SOTALOL HCL 80 MG TAB PO SCH (19:19)
[2016-10-02] MEDS: CEFAZOLIN IV 2,000 MG in DEXTROSE 5% 50ML 50 ML IV SCH (19:20)
[2016-10-02] MEDS: MoRPHine SULFATE 2 MG/ML CARP IV PRN (20:16)
[2016-10-02] MEDS ORDERED: AMLODIPINE BESYLATE 5 MG TAB PO STA (23:45)
[2016-10-02] MEDS ORDERED: HEPARIN SOD 5000 UNIT/0.5 ML CARP SQ STA (23:46)
[2016-10-03] VITALS (31 sets, daily range): BP systolic 123–171; BP diastolic 67–95; PULSE 60–79; TEMP 36.3–36.8; O2SAT 90–97
[2016-10-03] MEDS: CEFAZOLIN IV 2,000 MG in DEXTROSE 5% 50ML 50 ML IV SCH ×2 (03:53→11:24)
[2016-10-03 05:11] LABS: BASO % 0.1 %; BASO ABS # 0.01 K/uL (0-0.2); COMPLETE YES; EOS % 2.8 %; HEMATOCRIT 44.7 % (42-52); IG% 0.1 %; LYMPH % 11.4 %; LYMPH ABS # 0.82 K/uL (1.2-3.4); MEAN CELL VOLUME 93.3 fL (80-100); MEAN CORPUSCULAR HGB CONC 35.3 g/dl (32-36); MEAN PLATELET VOLUME 10.3 fL (7.4-10.4); MONO % 13.1 %; NEUT % 72.5 %; PLATELET COUNT 142 K/uL (130-400); RED BLOOD COUNT 4.79 M/uL (4.7-6.1); WHITE BLOOD COUNT 7.18 K/uL (4.8-10.8)
[2016-10-03 05:33] LABS: INR 1.1 (0.9-1.1); PROTHROMBIN TIME (PATIENT) 11.7 SECONDS (9.0-12.0)
[2016-10-03 05:43] LABS: BUN/CREATININE RATIO 16.1 (10-20); CALCIUM 8.5 mg/dl (8.5-10.1); CREATININE 2.1 mg/dl (0.60-1.40); MAGNESIUM 2.1 mg/dl (1.8-2.4); POTASSIUM 4.4 mmol/L (3.5-5.1)
[2016-10-03 05:46] LABS: PHOSPHORUS 2.3 mg/dl (2.5-4.9)
--- NOTE | 2016-10-03 07:14 | DIAGNOSTIC IMAGING REPORT ---
CHEST 2 VIEWS ROUTINE CLINICAL HISTORY: Chest x-ray status post pacemaker placement COMPARISON STUDY: 09/30/2016 FINDINGS: The cardiac and mediastinal contours remain stable. There is a left subclavian dual-chamber central venous pacemaker present. The electrode position appears unremarkable. There is no pneumothorax. An equivocal 2 cm left upper lung zone opacity was not present on the prior chest x-ray dated 09/07/2016. This therefore favors a summation artifact.[ There is no lobar consolidation. There is no failure. There is blunting of one of the posterior costophrenic angles, unchanged from prior studies. IMPRESSION: No evidence of pneumothorax status post pacemaker placement. Electronically signed by: Pascual Romero M.D. 10/03/2016 7:13 AM Dictated Date/Time: 10/03/2016 7:11 AM
--- NOTE | 2016-10-03 07:51 | DIAGNOSTIC IMAGING REPORT ---
INTRAPROCEDURAL FLUOROSCOPIC SPOT IMAGES OF THE CHEST CLINICAL HISTORY: Pacemaker insertion COMPARISON STUDY: No previous studies for comparison. FINDINGS: 270 seconds of fluoroscopic time was utilized. 2 intraprocedural fluoroscopic spot images are provided for interpretation. These demonstrate a dual-chamber left subclavian central venous pacemaker. IMPRESSION: Fluoroscopic spot images during insertion of a dual-chamber left subclavian central venous pacemaker. Electronically signed by: Pascual Romero M.D. 10/03/2016 7:50 AM Dictated Date/Time: 10/03/2016 7:49 AM
[2016-10-03] MEDS: AMLODIPINE BESYLATE 5 MG TAB PO SCH (08:20)
[2016-10-03] MEDS: PANTOprazole SOD 40 MG TAB PO SCH (08:21)
[2016-10-03] MEDS: SOTALOL HCL 80 MG TAB PO SCH ×2 (08:21→20:41)
[2016-10-03] MEDS: HEPARIN SOD 5000 UNIT/0.5 ML CARP SQ SCH ×2 (08:40→20:17)
[2016-10-03] MEDS ORDERED: NURSING VERBAL MED ORDER ONE (09:00)
--- NOTE | 2016-10-03 09:03 | Cardiology Follow-Up ---
Subjective Date of Service: Oct 03, 2016. Pt evaluation today including: conversation w/ patient, physical exam, lab review, review of studies, review of inpatient medication list History of Present Illness This is a very pleasant 86-year-old gentleman with a history of paroxysmal atrial fibrillation for which he was on propafenone. 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 He was admitted on 2016 when this was identified, a temporary pacemaker was placed awaiting drug metabolism. He remained in complete heart block for 48 hours, therefore a permanent pacemaker was implanted on 10/02/2016 without apparent difficulty. He has no complaints today, no chest discomfort and no shortness of breath. He has no incisional discomfort. Social History Smoking Status: Former Smoker History of Alcohol Use: No Review of Systems Respiratory: No cough, No sputum, No wheezing, No shortness of breath, No dyspnea on exertion Cardiac: No chest pain, No orthopnea, No PND 10 point review of systems was completed and was otherwise negative unless stated in HPI Medications Cardiovascular: Item Value Date Time Amlodipine 5 mg 10/03/16 0900 Besylate DAILY/PO 10/03/16 0820 (Norvasc Tab) Sotalol HCl 40 mg 10/02/16 2100 (Betapace Tab) BID/PO 10/03/16 0821 Objective Vital Signs Past 12 Hours Date Time Temp Pulse Resp B/P (MAP) Pulse Ox O2 Delivery O2 Flow Rate FiO2 10/03/16 08:00 94 Room Air 10/03/16 06:01 36.4 69 15 147/77 (100) 95 10/03/16 06:00 69 26 94 10/03/16 05:01 62 21 147/68 (94) 93 10/03/16 05:00 75 28 94 10/03/16 04:08 94 Room Air 10/03/16 04:01 69 19 137/74 (95) 92 10/03/16 04:00 73 21 93 10/03/16 03:01 75 19 140/95 (110) 93 10/03/16 03:00 64 15 94 10/03/16 02:01 64 20 171/74 (106) 93 10/03/16 02:00 70 20 95 10/03/16 01:01 64 23 153/77 (102) 10/03/16 01:00 36.3 65 17 95 10/03/16 00:27 94 Room Air 10/03/16 00:01 70 20 160/79 (106) 93 10/03/16 00:00 68 25 95 10/02/16 23:01 72 20 151/99 (116) 10/02/16 23:00 71 17 93 10/02/16 22:01 74 21 171/73 (105) 92 10/02/16 22:00 71 17 94 10/02/16 21:01 72 14 142/76 (98) 93 10/02/16 21:00 67 16 94 Last Recorded Weight-Kilograms: 86.700 Physical Exam Constitutional: Level of Distress: NAD Lungs: Auscultation: breath sounds normal, no wheezing, no rales/crackles Cardiovascular: Heart Auscultation: RRR, no murmurs, II/ WSM (At left lower base) Peripheral Pulses: Carotid Pulse: normal on the left, normal on the right Radial Pulse: normal on the left, normal on the right Femoral Pulse: normal on the left, normal on the right Dorsalis Pedis Pulse: normal on the left, normal on the right Extremities: no cyanosis, no edema The pacemaker site is clean and dry, no hematoma. Dressing changed. Data Laboratory Results: Last 24 Hours Test 10/02/16 16:04 10/03/16 04:52 Bedside Glucose 109 mg/dl White Blood Count 7.18 K/uL Red Blood Count 4.79 M/uL Hemoglobin 15.8 g/dL Hematocrit 44.7 % Mean Corpuscular Volume 93.3 fL Mean Corpuscular Hemoglobin 33.0 pg Mean Corpuscular Hemoglobin Concent 35.3 g/dl Platelet Count 142 K/uL Mean Platelet Volume 10.3 fL Neutrophils (%) (Auto) 72.5 % Lymphocytes (%) (Auto) 11.4 % Monocytes (%) (Auto) 13.1 % Eosinophils (%) (Auto) 2.8 % Basophils (%) (Auto) 0.1 % Neutrophils # (Auto) 5.20 K/uL Lymphocytes # (Auto) 0.82 K/uL Monocytes # (Auto) 0.94 K/uL Eosinophils # (Auto) 0.20 K/uL Basophils # (Auto) 0.01 K/uL RDW Standard Deviation 46.1 fL RDW Coefficient of Variation 13.5 % Immature Granulocyte % (Auto) 0.1 % Immature Granulocyte # (Auto) 0.01 K/uL Prothrombin Time 11.7 SECONDS Prothromb Time International Ratio 1.1 Sodium Level 142 mmol/L Potassium Level 4.4 mmol/L Chloride Level 110 mmol/L Carbon Dioxide Level 24 mmol/L Anion Gap 8.0 mmol/L Blood Urea Nitrogen 34 mg/dl Creatinine 2.10 mg/dl Est Creatinine Clear Calc Drug Dose 25.1 ml/min Estimated GFR () 31.8 Estimated GFR (Non- 27.5 BUN/Creatinine Ratio 16.1 Random Glucose 96 mg/dl Calcium Level 8.5 mg/dl Phosphorus Level 2.3 mg/dl Magnesium Level 2.1 mg/dl Total Bilirubin 1.0 mg/dl Direct Bilirubin 0.3 mg/dl Aspartate Amino Transf (AST/SGOT) 22 U/L Alanine Aminotransferase (ALT/SGPT) 25 U/L Alkaline Phosphatase 73 U/L Total Protein 6.4 gm/dl Albumin 3.1 gm/dl Imaging: Chest x-ray shows good lead position, no pneumothorax EKG: Sinus rhythm with atrial sensing and ventricular pacing appropriately Telemetry reviewed: Normal dual-chamber pacemaker function Pacemaker evaluation: Excellent pacing and sensing characteristics in both leads. Assessment and Plan #1. Complete heart block: No reversible cause has been identified, it does not appear to be drug related. He remained dependent on his temporary pacemaker and needed to have a permanent pacemaker implanted. #2. Postop day #1: Doing well postop, his pacemaker dysfunction well, the site looks good. He is back on his outpatient medications. Stable for discharge from the pacemaker standpoint. I will arrange outpatient follow-up. Thank you for allowing me to participate in his care.
--- NOTE | 2016-10-03 09:12 | Consultant Recommendations ---
[employer] Operator Recommendations Date of Service Oct 03, 2016. [employer] Operator Recommendations ACTIVITY RECOMMENDATIONS: * Do not raise affected arm over head for 2 weeks. SPECIAL CARE INSTRUCTIONS: * If bleeding occurs, apply direct pressure to area for 5 minutes. * Call your doctor if you have severe pain, fever, drainage or bleeding at site. * Keep dressing on and dry for 48 hours then remove. * Keep any scheduled doctor's appointment. * Implant Card - hand held device with website information given. SKIN IRRITATION: * You may experience some redness and/or swelling in the area where radiation was administered. If any skin irritation occurs, please contact your family physician. FOLLOW UP VISIT: Keep any scheduled doctor appointments.
[2016-10-03] MEDS ORDERED: DOCUSATE SODIUM 100 MG CAP PO SCH (09:45)
--- NOTE | 2016-10-03 10:25 | Clinical Documentation Query ---
CLINICAL DOCUMENTATION QUERY Query #1/2 86-y/o who presents with symptomatic complete heart block with rates in 20's. H&P and progress notes describe patient as having CKD stage 3, but "presenting creatinine is above baseline due to hypoperfusion from bradycardia." In your clinical opinion is this patient being managed for: ( x ) STAN on CKD stage 3 possible in setting of bradycardia induced hypoperfusion. ( ) Other explanation of clinical findings (Please Explain) ( ) Unable to determine (Please Define) ( ) Need to Discuss ( ) Not Agree The medical record reflects the following clinical findings, treatment, and risk factors. Clinical Indicators: As above. BUN 47, Creatinine 2.50, GFR 22.3, Treatment: Transvenous pacing, IVF's, daily PRP's Risk Factors: Bradycardia, Query #2/2 86-y/o who presents with symptomatic complete heart block with rates in 20's. H&P and progress notes describe patient as having CKD stage 3, but presenting creatinine is above baseline due to hypoperfusion from bradycardia. In your clinical opinion is this patient being managed for: ( x) STAN on CKD stage 3 possible in setting of bradycardia induced hypoperfusion. ( ) Other explanation of clinical findings (Please Explain) ( ) Unable to determine (Please Define) ( ) Need to Discuss ( ) Not Agree The medical record reflects the following clinical findings, treatment, and risk factors. Clinical Indicators: As above. BUN 47, Creatinine 2.50, GFR 22.3, Treatment: Transvenous pacing, IVF's, daily PRP's Risk Factors: Bradycardia, Please clarify and document your clinical opinion in the progress notes and discharge summary. Terms such as "probable", "suspected", "likely", "questionable", "possible", or "still to be ruled out" are acceptable. IF IN AGREEMENT, YOU MUST DOCUMENT ABOVE DIAGNOSTIC STATEMENT IN DAILY PROGRESS NOTES AND DISCHARGE SUMMARY. This document is not part of the patient's record. Thank You, Cedric Albert RN [phone]
--- NOTE | 2016-10-03 11:36 | Progress Note ---
Subjective Date of Service: Oct 03, 2016. Subjective Pt evaluation today including: conversation w/ patient, physical exam, chart review, lab review, review of studies, conversation w/ field technical support consultant, review of inpatient medication list Nurse reported patient was combative last night which required Ativan to calm down, This morning he is doing good, eating breakfast, awake and alert and orientated to name place but not time Reported no bowel movement for 2-3 days Has not out of bed yet Problem List Medical Problems: (1) Complete heart block Status: Acute (2) Elevated troponin Status: Acute Review of Systems Constitutional: + fatigue, No fever, No chills, No sweats, No weight loss, No weakness, No problem reported Eyes: No worsening of vision, No eye pain, No redness, No discharge, No diplopia ENT: No hearing loss, No unusual epistaxis, No nasal symptoms, No sore throat, No tinnitus, No dental problems, No trouble swallowing Respiratory: No cough, No sputum, No wheezing, No shortness of breath, No dyspnea on exertion, No dyspnea at rest, No hemoptysis Cardiac: No chest pain, No orthopnea, No PND, No edema, No claudication, No palpitations Abdomen: + constipation, No pain, No nausea, No vomiting, No diarrhea Musculoskeletal: No joint pain, No muscle pain, No swelling, No calf pain Male : No dysuria, No urinary frequency, No incontinence, No nocturia more than once/night, No slowing stream, No hematuria Neurologic: No memory loss, No paralysis, No weakness, No numbness/tingling, No vertigo, No balance problems Psychiatric: No depression symptoms, No anhedonism, No anxiety, No insomnia, No substance abuse Heme: No abnormal bleeding/bruising, No clotting problems, No swollen lymph nodes, No night sweats Endo: No fatigue, No excessive thirst, No excessive urination Skin: No rash, No itch, No new/changing skin lesions, No color change, No bleeding Objective Vital Signs Date Time Temp Pulse Resp B/P (MAP) Pulse Ox O2 Delivery O2 Flow Rate FiO2 10/03/16 11:10 95 Room Air 10/03/16 09:01 76 24 147/78 (101) 90 Room Air 10/03/16 09:00 79 15 94 10/03/16 08:01 36.8 63 14 152/74 (100) 94 Room Air 10/03/16 08:00 68 17 94 10/03/16 08:00 94 Room Air 10/03/16 06:01 36.4 69 15 147/77 (100) 95 10/03/16 06:00 69 26 94 10/03/16 05:01 62 21 147/68 (94) 93 10/03/16 05:00 75 28 94 10/03/16 04:08 94 Room Air 10/03/16 04:01 69 19 137/74 (95) 92 10/03/16 04:00 73 21 93 10/03/16 03:01 75 19 140/95 (110) 93 10/03/16 03:00 64 15 94 10/03/16 02:01 64 20 171/74 (106) 93 10/03/16 02:00 70 20 95 10/03/16 01:01 64 23 153/77 (102) 10/03/16 01:00 36.3 65 17 95 10/03/16 00:27 94 Room Air 10/03/16 00:01 70 20 160/79 (106) 93 10/03/16 00:00 68 25 95 10/02/16 23:01 72 20 151/99 (116) 10/02/16 23:00 71 17 93 10/02/16 22:01 74 21 171/73 (105) 92 10/02/16 22:00 71 17 94 10/02/16 21:01 72 14 142/76 (98) 93 10/02/16 21:00 67 16 94 10/02/16 20:01 77 16 165/70 (101) 10/02/16 20:00 94 Room Air 10/02/16 20:00 36.4 77 25 94 10/02/16 19:01 71 19 165/80 (108) 93 10/02/16 19:00 69 19 93 10/02/16 18:00 62 22 140/65 (90) 96 Room Air 62 10/02/16 16:35 60 14 96 17 16:32 60 16 159/69 (99) 95 10/02/16 16:30 95 Room Air 10/02/16 16:30 36.8 67 18 159/69 (99) 95 Room Air 67 10/02/16 16:05 68 18 95 10/02/16 16:02 68 23 110/92 (98) 93 10/02/16 15:35 67 20 95 10/02/16 15:31 66 14 126/69 (88) 94 10/02/16 15:05 65 17 98 10/02/16 15:01 61 18 138/69 (92) 95 10/02/16 14:35 60 21 98 10/02/16 14:31 61 17 170/68 (102) 99 10/02/16 14:30 18 170/68 (102) 97 Nasal Cannula 2.0 10/02/16 14:30 60 12 99 10/02/16 14:01 15 159/81 (107) 96 10/02/16 14:00 13 96 10/02/16 13:45 16 96 10/02/16 13:32 20 165/77 (106) 97 10/02/16 13:30 15 95 10/02/16 13:27 13 150/74 (99) 97 10/02/16 13:22 26 155/66 (95) 98 10/02/16 13:20 61 20 155/66 98 Nasal Cannula 2 10/02/16 13:19 17 173/91 (118) 97 10/02/16 13:15 23 98 10/02/16 13:10 62 19 173/91 98 Nasal Cannula 2 10/02/16 13:02 161/80 (107) 99 10/02/16 13:00 36.5 60 18 161/80 98 Nasal Cannula 2 Manual 10/02/16 13:00 98 Nasal Cannula 2.0 10/02/16 13:00 36.5 5 Physical Exam General Appearance: WD/WN, no apparent distress, + obese Eyes: normal inspection, PERRL, EOMI, sclerae normal ENT: normal ENT inspection, hearing grossly normal, pharynx normal Neck: supple, no adenopathy, thyroid normal, no JVD, no carotid bruits, trachea midline Respiratory/Chest: chest non-tender, normal breath sounds, no respiratory distress, no accessory muscle use, + decreased breath sounds, + pertinent finding (left chest wall pacer in place, local is in dress) Cardiovascular: regular rate, rhythm, no edema, no gallop, no JVD, no murmur Abdomen: normal bowel sounds, non tender, soft, no organomegaly, no pulsatile mass Extremities: normal range of motion, non-tender, normal inspection, no pedal edema, no calf tenderness, normal capillary refill, pelvis stable 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, no motor/sensory deficits, alert, normal mood/affect, oriented x 3 Skin: normal color, warm/dry, no rash Lymphatic: no adenopathy Laboratory Results Last 24 Hours Test 10/02/16 16:04 10/03/16 04:52 Bedside Glucose 109 mg/dl White Blood Count 7.18 K/uL Red Blood Count 4.79 M/uL Hemoglobin 15.8 g/dL Hematocrit 44.7 % Mean Corpuscular Volume 93.3 fL Mean Corpuscular Hemoglobin 33.0 pg Mean Corpuscular Hemoglobin Concent 35.3 g/dl Platelet Count 142 K/uL Mean Platelet Volume 10.3 fL Neutrophils (%) (Auto) 72.5 % Lymphocytes (%) (Auto) 11.4 % Monocytes (%) (Auto) 13.1 % Eosinophils (%) (Auto) 2.8 % Basophils (%) (Auto) 0.1 % Neutrophils # (Auto) 5.20 K/uL Lymphocytes # (Auto) 0.82 K/uL Monocytes # (Auto) 0.94 K/uL Eosinophils # (Auto) 0.20 K/uL Basophils # (Auto) 0.01 K/uL RDW Standard Deviation 46.1 fL RDW Coefficient of Variation 13.5 % Immature Granulocyte % (Auto) 0.1 % Immature Granulocyte # (Auto) 0.01 K/uL Prothrombin Time 11.7 SECONDS Prothromb Time International Ratio 1.1 Sodium Level 142 mmol/L Potassium Level 4.4 mmol/L Chloride Level 110 mmol/L Carbon Dioxide Level 24 mmol/L Anion Gap 8.0 mmol/L Blood Urea Nitrogen 34 mg/dl Creatinine 2.10 mg/dl Est Creatinine Clear Calc Drug Dose 25.1 ml/min Estimated GFR () 31.8 Estimated GFR (Non- 27.5 BUN/Creatinine Ratio 16.1 Random Glucose 96 mg/dl Calcium Level 8.5 mg/dl Phosphorus Level 2.3 mg/dl Magnesium Level 2.1 mg/dl Total Bilirubin 1.0 mg/dl Direct Bilirubin 0.3 mg/dl Aspartate Amino Transf (AST/SGOT) 22 U/L Alanine Aminotransferase (ALT/SGPT) 25 U/L Alkaline Phosphatase 73 U/L Total Protein 6.4 gm/dl Albumin 3.1 gm/dl Assessment and Plan 86 y/o M Hx HTN, CKD 3, PAF, mild dementia was admitted on 09/30/2016 because of felt fatigued for approximately 2 weeks. Prior to admission he presented to his primary MDs office for a checkup and it was noted that his HR was in the mid 20s. On arrival to the ER an EKG revealed AV dissociation with a ventricular rhythm at 26 BPM. History of PAF , takes Sotalol daily for PAF. Permanent pacemaker to be placed per design technician Bradycardia - heart block noted to be in 2:1 AVB. was evaluated by cardiology in the ER. Temporary venous pacing placed. Cont to hold sotalol. ECHO completed. Severe LVH noted Minimal elevated troponin , possible from bradycardia, Permanent pacemaker to be placed 10/02 Postop day #1: Doing well postop, his pacemaker dysfunction well, the site looks good. He is back on his outpatient medications. Stable for discharge from the pacemaker standpoint. I will arrange outpatient follow-up. Per design technician, post op Recommendations can be seen in below, we'll make sure deliver to patient upon discharge ACTIVITY RECOMMENDATIONS: * Do not raise affected arm over head for 2 weeks. SPECIAL CARE INSTRUCTIONS: * If bleeding occurs, apply direct pressure to area for 5 minutes. * Call your doctor if you have severe pain, fever, drainage or bleeding at site. * Keep dressing on and dry for 48 hours then remove. * Keep any scheduled doctor's appointment. * Implant Card - hand held device with website information given. SKIN IRRITATION: * You may experience some redness and/or swelling in the area where radiation was administered. If any skin irritation occurs, please contact your family physician. FOLLOW UP VISIT: Keep any scheduled doctor appointments. HTN: Cont norvasc once pt more alert and able to take PO CKD 4 - creat is above recent baseline likely due to hypoperfusion from bradycardia. Improving with gentle migration, close to baseline, has been stable History of mild dementia, currently has possible mild confused, not orientated to time, possible is in baseline, will watch Constipation, give MiraLAX 1, and Colace by mouth twice a day scheduled Increase activities, PT OT evaluation Talked to patient's son Ray regarding patient's conditions and updated him about a care plan, will have PT OT evaluation and son preferred to have rehabilitation if needed Med surge today Continued [facility] stay due to: home environment unsafe for pt Discharge planning: uncertain
--- NOTE | 2016-10-03 12:07 | Clinical Documentation Query ---
CLINICAL DOCUMENTATION QUERY This patient on PM of 10/02 had increased confusion and agitation requiring nursing 1:1, IV Haldol and Ativan. In your clinical opinion is this patient being managed for: ( ) Metabolic encephalopathy in setting of prolonged narcotic metabolism 2/2 CKD and age. ( x ) Other explanation of clinical findings (Please Explain), confusion may from factors, such as baseline dementia, acute kidney injury on stage 3-4 CKD, etc ( ) Unable to determine (Please Define) ( ) Need to Discuss ( ) Not Agree The medical record reflects the following clinical findings, treatment, and risk factors. Clinical Indicators: confusion, agitation above baseline dementia. IV Sedation for surgical procedure. Treatment: nursing 1:1, IV Haldol, IV Ativan. Risk Factors: Age, CKD, Please clarify and document your clinical opinion in the progress notes and discharge summary. Terms such as "probable", "suspected", "likely", "questionable", "possible", or "still to be ruled out" are acceptable. IF IN AGREEMENT, YOU MUST DOCUMENT ABOVE DIAGNOSTIC STATEMENT IN DAILY PROGRESS NOTES AND DISCHARGE SUMMARY. This document is not part of the patient's record. Thank You, Cedric Albert, RN [phone]
[2016-10-03] MEDS: DOCUSATE SODIUM 100 MG CAP PO SCH (20:00)
[2016-10-04 07:30] VITALS: BP 146/74; PULSE 60; TEMP 36.7; O2SAT 96
[2016-10-04] MEDS: PANTOprazole SOD 40 MG TAB PO SCH (09:05)
[2016-10-04] MEDS: DOCUSATE SODIUM 100 MG CAP PO SCH (09:05)
[2016-10-04] MEDS: AMLODIPINE BESYLATE 5 MG TAB PO SCH (09:05)
[2016-10-04] MEDS: SOTALOL HCL 80 MG TAB PO SCH (09:06)
[2016-10-04] MEDS: HEPARIN SOD 5000 UNIT/0.5 ML CARP SQ SCH (09:07)
[2016-10-04 09:42] LABS: BASO % 0.3 %; BASO ABS # 0.02 K/uL (0-0.2); COMPLETE YES; EOS % 4.5 %; HEMATOCRIT 43.9 % (42-52); IG% 0.2 %; LYMPH % 16.8 %; LYMPH ABS # 1.11 K/uL (1.2-3.4); MEAN CELL VOLUME 93.4 fL (80-100); MEAN CORPUSCULAR HEMOGLOBIN 33.4 pg (25-34); MEAN CORPUSCULAR HGB CONC 35.8 g/dl (32-36); MEAN PLATELET VOLUME 10.7 fL (7.4-10.4); MONO % 11.3 %; NEUT % 66.9 %; PLATELET COUNT 134 K/uL (130-400); WHITE BLOOD COUNT 6.62 K/uL (4.8-10.8)
[2016-10-04 09:48] LABS: INR 1.1 (0.9-1.1); PROTHROMBIN TIME (PATIENT) 11.5 SECONDS (9.0-12.0)
[2016-10-04 10:24] LABS: BUN/CREATININE RATIO 17.9 (10-20); CALCIUM 8.8 mg/dl (8.5-10.1); MAGNESIUM 2.2 mg/dl (1.8-2.4); POTASSIUM 4.2 mmol/L (3.5-5.1)
[2016-10-04 10:27] LABS: PHOSPHORUS 2.1 mg/dl (2.5-4.9)
--- NOTE | 2016-10-04 11:24 | Discharge Instructions ---
Discharge Instructions Date of Service Oct 04, 2016. Admission Reason for Admission: Bradycardia, Weakness Discharge Discharge Diagnosis / Problem: bradycardia s/p pacer Discharge Goals Goal(s): Decrease discomfort, Improve function, Increase independence, Improve disease control, Improve nutritional status, Learn about illness, Prevent Disease Progression, Specific goals Activity Recommendations Activity Limitations: resume your previous activity (fall precaution) . Instructions / Follow-Up Instructions / Follow-Up you have Bradycardia - heart block, Permanent pacemaker to be placed 10/02 Per internal audit senior manager, post op Recommendations can be seen in below, we'll make sure deliver to patient upon discharge ACTIVITY RECOMMENDATIONS: * Do not raise affected arm over head for 2 weeks. SPECIAL CARE INSTRUCTIONS: * If bleeding occurs, apply direct pressure to area for 5 minutes. * Call your doctor if you have severe pain, fever, drainage or bleeding at site. * Keep dressing on and dry for 48 hours then remove. * Keep any scheduled doctor's appointment. * Implant Card - hand held device with website information given. SKIN IRRITATION: * You may experience some redness and/or swelling in the area where radiation was administered. If any skin irritation occurs, please contact your family physician. FOLLOW UP VISIT: Keep any scheduled doctor appointments. you have acute kidney injury on top of chronic kidney disease, you need to have labs (bmp ) check to follow up of your kidney functions in 1 week - you need to follow up with your primary care physician in 1 week, - take medication as instructed, never overdose or any misuse, or take with alcohol, because misuse of medicine may cause organ damage or , call your primary care physician if have questions of medicaitons. - call your primary care physician OR go to local emergency room if has any fever/chill, chest pain, shortness of breathing, nausea/vomiting/abdominal pain , facial droop/slurry speech/local weakness, or if has any questions. - fall precaution - diet as instructed - you need to follow up with your internal audit senior manager as instructed - you should understand that it is important to follow up the above instruction , and "not following the above instruction" may cause delayed or missed care of your medical conditions which may cause permanent organ damage and even . 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 for safety of fall at home until cleared by pcp, and continue home health care with therapy , and check for vital signs and medications Current Hospital Diet Patient's current hospital diet: AHA Diet (Heart Healthy) Discharge Diet Recommended Diet: AHA Diet (Heart Healthy), Low Sodium Diet (2gm Na) Procedures Procedures Performed: Pacemaker Insertion on the left side Pending Studies Studies pending at discharge: no Laboratory Results Meds Administered (Past 24Hrs) Medications (Trade) Dose Ordered Sig/Semaj Route Start Time Stop Time Status Last Admin Dose Admin Cefazolin Sodium 2000 mg/Dextrose 60 ml @ 100 mls/hr Q8H IV 10/02/16 20:00 10/03/16 19:59 DC 10/03/16 11:24 100 MLS/HR Sotalol HCl (Betapace Tab) 40 mg BID PO 10/02/16 21:00 11/01/16 20:59 10/04/16 09:06 40 MG Amlodipine Besylate (Norvasc Tab) 5 mg DAILY PO 10/03/16 09:00 11/02/16 08:59 10/04/16 09:05 5 MG Amlodipine Besylate (Norvasc Tab) 5 mg NOW STAT PO 10/02/16 23:45 10/02/16 23:46 DC 10/02/16 23:53 5 MG Heparin Sodium (Porcine) (Heparin Sq 5000 Unit/0.5ml) 5,000 unit Q12 SQ 10/03/16 09:00 11/02/16 08:59 10/04/16 09:07 5,000 UNIT Heparin Sodium (Porcine) (Heparin Sq 5000 Unit/0.5ml) 5,000 unit NOW STAT SQ 10/02/16 23:46 10/02/16 23:48 DC 10/02/16 23:54 5,000 UNIT Docusate Sodium (coLACE CAP) 100 mg BID PO 10/03/16 20:00 11/02/16 20:59 10/04/16 09:05 100 MG Docusate Sodium (coLACE CAP) 100 mg TODAY@0945 PO 10/03/16 09:45 10/03/16 12:00 DC 10/03/16 11:24 100 MG Medical Emergencies . Who to Call and When: Medical Emergencies: If at any time you feel your situation is an emergency, please call 911 immediately. . Non-Emergent Contact Non-Emergency issues call your: Primary Care Provider, [employer] . . "Provider Documentation" section prepared by [employer]. . Storeroom Keeper Recommendations Storeroom Keeper Recommendations: ACTIVITY RECOMMENDATIONS: * Do not raise affected arm over head for 2 weeks. SPECIAL CARE INSTRUCTIONS: * If bleeding occurs, apply direct pressure to area for 5 minutes. * Call your doctor if you have severe pain, fever, drainage or bleeding at site. * Keep dressing on and dry for 48 hours then remove. * Keep any scheduled doctor's appointment. * Implant Card - hand held device with website information given. SKIN IRRITATION: * You may experience some redness and/or swelling in the area where radiation was administered. If any skin irritation occurs, please contact your family physician. FOLLOW UP VISIT: Keep any scheduled doctor appointments. VTE Core Measure Inpt VTE Proph given/why not?: Unfractionated heparin SQ
[2016-10-04 11:31] VITALS: BP 146/74; PULSE 60; TEMP 36.7; O2SAT 96
--- NOTE | 2016-10-04 11:53 | Discharge Summary ---
Discharge Summary Date of Service Oct 04, 2016. 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 10/02 Consultations: Lumber [employer]er Medication Reconciliation Continued Medications: Amlodipine (Norvasc) 5 Mg Tab 5 MG PO DAILY, TAB Cholecalciferol (Vitamin D3) 1,000 Unit Tab 1 TAB PO DAILY for 90 Days, #90 TAB 3 Refills Omeprazole (Prilosec) 20 Mg Cap 20 MG PO DAILY, CAP Sotalol Hcl (Sotalol Hcl) 80 Mg Tab 0.5 TAB PO BID for 90 Days, #90 TAB 3 Refills Discharge Exam Sitting up in chair,reported up to rest room using walker, patient is playing poker, he reported feeling back to baseline Review of Systems: Constitutional: No fever, No chills, No sweats, No weight loss, No weakness , No fatigue, No problem reported Eyes: No worsening of vision, No eye pain, No redness, No discharge, No diplopia, No problem reported ENT: No hearing loss, No unusual epistaxis, No nasal symptoms, No sore throat, No tinnitus, No dental problems, No trouble swallowing, No problem reported Respiratory: No cough, No sputum, No wheezing, No shortness of breath, No dyspnea on exertion, No dyspnea at rest, No hemoptysis, No problem reported Cardiovascular: No chest pain, No orthopnea, No PND, No edema, No claudication, No palpitations, No problem reported Abdomen: No pain, No nausea, No vomiting, No diarrhea, No constipation, No GI bleeding, No problem reported Musculoskeletal: No joint pain, No muscle pain, No swelling, No calf pain, No problem reported Genitourinary - Male: No hematuria, No dysuria, No urinary frequency, No urinary urgency, No urinary hesitancy, No urinary retention, No urinary incontinence, No penile discharge, No lesions, No impotence, No problem reported Neurologic: No memory loss, No paralysis, No weakness, No numbness/tingling , No vertigo, No balance problems, No problem reported Psychiatric: No depression symptoms, No anhedonism, No anxiety, No insomnia , No substance abuse, No problem reported Endocrine: No fatigue, No excessive thirst, No excessive urination, No problem reported Hematologic / Lymphatic: No abnormal bleeding/bruising, No clotting problems , No swollen lymph nodes, No night sweats, No problem reported Integumentary: No rash, No itch, No new/changing skin lesions, No color change, No bleeding, No problem reported Physical Exam: General Appearance: WD/WN Eyes: normal inspection, EOMI ENT: normal ENT inspection, hearing grossly normal Neck: supple, no adenopathy Respiratory/Chest: chest non-tender, + decreased breath sounds, + pertinent finding (left anterior upper chest S/P pacemaker, local wound clean, no swelling /drainage, with dress) Cardiovascular: regular rate, rhythm, no edema, no gallop Abdomen / GI: normal bowel sounds, non tender, soft Extremities: normal inspection, no calf tenderness, normal capillary refill , no pedal edema, normal range of motion Neurologic/Psychiatric: metrology specialist II-XII nml as tested, no motor/sensory deficits , alert, normal mood/affect, normal reflexes, oriented x 3 Skin: normal color, warm/dry, no rash Lymphatic: no adenopathy Hospital Course 86 y/o M Hx HTN, CKD 3, PAF, mild dementia was admitted on 09/30/2016 because of felt fatigued for approximately 2 weeks. Prior to admission he presented to his primary MDs office for a checkup and it was noted that his HR was in the mid 20s. On arrival to the ER an EKG revealed AV dissociation with a ventricular rhythm at 26 BPM. History of PAF , takes Sotalol daily for PAF. 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 was evaluated by cardiology in the ER. Temporary venous pacing placed. Cont to hold sotalol. ECHO completed. 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 He is back on his outpatient medications. Stable for discharge from the pacemaker standpoint. Cardiology has arranged outpatient follow-up Per firer glost kiln, post op Recommendations can be seen in below, we'll make sure deliver to patient upon discharge ACTIVITY RECOMMENDATIONS: * Do not raise affected arm over head for 2 weeks. SPECIAL CARE INSTRUCTIONS: * If bleeding occurs, apply direct pressure to area for 5 minutes. * Call your doctor if you have severe pain, fever, drainage or bleeding at site. * Keep dressing on and dry for 48 hours then remove. * Keep any scheduled doctor's appointment. * Implant Card - hand held device with website information given. SKIN IRRITATION: * You may experience some redness and/or swelling in the area where radiation was administered. If any skin irritation occurs, please contact your family physician. FOLLOW UP VISIT: Keep any scheduled doctor appointments. HTN: Stable Cont norvasc once pt more alert and able to take PO CKD 4 - creat is above recent baseline likely due to hypoperfusion from bradycardia. Improving with gentle migration, close to baseline, has been stable , today's creatinine is 2.0 from 2.1 yesterday, which is stable, however need to follow-up with PCP to make sure continue to improve History of mild dementia, currently has possible mild confused, not orientated to time, possible is in baseline, will watch Constipation, give MiraLAX 1, and Colace by mouth twice a day scheduled Increase activities, PT OT evaluation, PT evaluation recommend potential rehabilitation or home with supervision On 10/03/2016 Talked to patient's son Jean regarding patient's conditions and updated him about a care plan, On 10/04/2016, which is today, discussed with patient and patient's son was name is Pete , they both feel good enough to go home, declined to go to the rehabilitation, they reportedly not able to arrange family members to have 24 7 supervision at home, Pete told me there are several family members can Overlapping watching him, therefore I agree to discharge patient to home with home healthcare. 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 SPECIAL CARE INSTRUCTIONS: * If bleeding occurs, apply direct pressure to area for 5 minutes. * Call your doctor if you have severe pain, fever, drainage or bleeding at site. * Keep dressing on and dry for 48 hours then remove. * Keep any scheduled doctor's appointment. * Implant Card - hand held device with website information given. SKIN IRRITATION: * You may experience some redness and/or swelling in the area where radiation was administered. If any skin irritation occurs, please contact your family physician. FOLLOW UP VISIT: Keep any scheduled doctor appointments. you have acute kidney injury on top of chronic kidney disease, you need to have labs (bmp ) check to follow up of your kidney functions in 1 week - you need to follow up with your primary care physician in 1 week, - take medication as instructed, never overdose or any misuse, or take with alcohol, because misuse of medicine may cause organ damage or , call your primary care physician if have questions of medicaitons. - call your primary care physician OR go to local emergency room if has any fever/chill, chest pain, shortness of breathing, nausea/vomiting/abdominal pain , facial droop/slurry speech/local weakness, or if has any questions. - fall precaution - diet as instructed - you need to follow up with your firer [employer] as instructed - you should understand that it is important to follow up the above instruction , and "not following the above instruction" may cause delayed or missed care of your medical conditions which may cause permanent organ damage and even . - fall precaution, your need to have family member 10/10 mapping supervisor for safety of fall at home until cleared by pcp, and continue home health care with therapy , and check for vital signs and medications Total Time Spent: Greater than 30 minutes This includes examination of the patient, discharge planning, medication reconciliation, and communication with other providers. Discharge Instructions Please refer to the electronic Patient Visit Report (Discharge Instructions) for additional information. Additional Copies To Jesus Newton M.D.
== END 2016-10-04 13:30 | disposition home health service (06) | DRG 243 ==
LOC: C.EDB 11:37 → EDBD 11:37 → ENRESERV 13:33 → C.MSICU 13:38 → C.MS4W 10-03 11:37 → ENRESERV 10-03 13:14
PROVIDERS: ADMIT Internal Medicine Interventional Cardiology; ATTEND Hospitalist
PROC: 02HK3JZ Insertion of Pacemaker Lead into Right Ventricle, Percutaneous Approach (ICD-10-PCS; principal; 2016-09-30 13:34)
PROC: 02H63JZ Insertion of Pacemaker Lead into Right Atrium, Percutaneous Approach (ICD-10-PCS; 2016-10-02)
PROC: 02HK3JZ Insertion of Pacemaker Lead into Right Ventricle, Percutaneous Approach (ICD-10-PCS; 2016-10-02)
PROC: 0JH606Z Insertion of Pacemaker, Dual Chamber into Chest Subcutaneous Tissue and Fascia, Open Approach (ICD-10-PCS; 2016-10-02)
DX: R00.1 Bradycardia, unspecified (principal); N17.9 Acute kidney failure, unspecified; I44.2 Atrioventricular block, complete; N18.3 Chronic kidney disease, stage 3 (moderate); I12.9 Hypertensive chronic kidney disease with stage 1 through stage 4 chronic kidney disease, or unspecified chronic kidney disease; R79.89 Other specified abnormal findings of blood chemistry; F03.90 Unspecified dementia, unspecified severity, without behavioral disturbance, psychotic disturbance, mood disturbance, and anxiety; M19.90 Unspecified osteoarthritis, unspecified site; I48.0 Paroxysmal atrial fibrillation; Z79.899 Other long term (current) drug therapy; Z90.5 Acquired absence of kidney; Z87.891 Personal history of nicotine dependence

== ENCOUNTER → 2016-10-07 | Outpatient (CLI) | payer OTHER ==
[~2016-10-07] MED LIST changes: +AMLO-110 PO; +CHOL1000 PO; -LPR25 PO; +OMEP20CA9 PO; +SOTA80TA PO; -TRAM-10 PO; -XRL10 PO
[2016-10-07 17:48] LABS: BLOOD UREA NITROGEN 40 mg/dl (7-18); BUN/CREATININE RATIO 22.1 (10-20); CALCIUM 8.7 mg/dl (8.5-10.1); CARBON DIOXIDE 29 mmol/L (21-32); CHLORIDE 113 mmol/L (98-107); GLUCOSE 89 mg/dl (70-99); POTASSIUM 4.6 mmol/L (3.5-5.1); SODIUM 144 mmol/L (136-145)
== END | disposition home or self-care (01) ==
LOC: C.LABPVFM 11:05
PROVIDERS: ATTEND Nurse Practitioner
DX: N18.3 Chronic kidney disease, stage 3 (moderate) (principal)

== ENCOUNTER → 2017-02-24 | Outpatient (CLI) | payer OTHER ==
[2017-02-24 18:05] LABS: BASO % 0.5 %; BASO ABS # 0.03 K/uL (0-0.2); COMPLETE YES; EOS % 5.5 %; HEMATOCRIT 42.9 % (42-52); IG% 0.4 %; LYMPH % 25.8 %; LYMPH ABS # 1.46 K/uL (1.2-3.4); MEAN CELL VOLUME 93.7 fL (80-100); MEAN CORPUSCULAR HEMOGLOBIN 33.6 pg (25-34); MEAN CORPUSCULAR HGB CONC 35.9 g/dl (32-36); MEAN PLATELET VOLUME 10.2 fL (7.4-10.4); MONO % 10.4 %; NEUT % 57.4 %; PLATELET COUNT 163 K/uL (130-400); RED BLOOD COUNT 4.58 M/uL (4.7-6.1); WHITE BLOOD COUNT 5.66 K/uL (4.8-10.8)
[2017-02-24 18:41] LABS: BLOOD UREA NITROGEN 21 mg/dl (7-18); CALCIUM 8.7 mg/dl (8.5-10.1); CARBON DIOXIDE 29 mmol/L (21-32); CHLORIDE 110 mmol/L (98-107); CREATININE 1.72 mg/dl (0.60-1.40); GLUCOSE 80 mg/dl (70-99); MAGNESIUM 2.1 mg/dl (1.8-2.4); POTASSIUM 3.8 mmol/L (3.5-5.1); SODIUM 142 mmol/L (136-145)
[2017-02-24 18:42] LABS: PHOSPHORUS 2.9 mg/dl (2.5-4.9)
== END | disposition home or self-care (01) ==
LOC: C.LABPVFM 14:26
PROVIDERS: ATTEND Internal Medicine Nephrology
DX: N18.3 Chronic kidney disease, stage 3 (moderate) (principal)

== ENCOUNTER → 2017-02-27 | Outpatient (CLI) | payer OTHER ==
[2017-02-27 13:06] LABS: URINE APPEARANCE CLEAR (CLEAR); URINE BILIRUBIN NEG (NEG); URINE COLOR YELLOW; URINE EPITHELIAL CELL AUTO 0-5 /lpf (0-5); URINE NITRITE NEG (NEG); URINE SPECIFIC GRAVITY 1.017 (1.000-1.030); UROBILINOGEN NEG (NEG); ZZUR CULT IF INDIC CLEAN CATCH NO
[2017-02-27 13:10] LABS: MANUAL MICROSCOPIC REQUIRED? NO; REVIEW REQ? NO
[2017-02-27 13:21] LABS: URINE PROTIEN/CREAT RATIO 0.3 (0-0.2); URINE TOTAL PROTEIN 35.7 mg/dl (0-11.9)
== END | disposition home or self-care (01) ==
LOC: C.LABPVFM 10:11
PROVIDERS: ATTEND Internal Medicine Nephrology
DX: N18.3 Chronic kidney disease, stage 3 (moderate) (principal)

== ENCOUNTER → 2017-07-07 | Outpatient (CLI) | payer OTHER ==
[2017-07-07 18:01] LABS: ALBUMIN 3.7 gm/dl (3.4-5.0); BLOOD UREA NITROGEN 22 mg/dl (7-18); CALCIUM 8.9 mg/dl (8.5-10.1); CARBON DIOXIDE 31 mmol/L (21-32); CREATININE 1.78 mg/dl (0.60-1.40); GLUCOSE 73 mg/dl (70-99); PHOSPHORUS 2.9 mg/dl (2.5-4.9); SODIUM 141 mmol/L (136-145)
== END | disposition home or self-care (01) ==
LOC: C.LABPVFM 12:26
PROVIDERS: ATTEND Internal Medicine Nephrology
DX: E55.9 Vitamin D deficiency, unspecified (principal); N18.3 Chronic kidney disease, stage 3 (moderate)